=== PATIENT | male | born 1975 | race Caucasian/White ===

== ENCOUNTER 2020-12-03 06:31 | Outpatient (REF) | payer BC, SELFPAY ==
[2020-12-03 11:48] LABS: Alanine Aminotransferase 48 U/L (0-40); Alkaline Phosphatase 52 U/L (39-117); Anion Gap 11 (12-20); Aspartate Amino Transferase 28 U/L (5-37); Bilirubin Total 0.6 mg/dL (0.0-1.0); Blood Urea Nitrogen 14 mg/dL (9-16); Calcium 8.8 mg/dL (8.4-10.2); Carbon Dioxide 29 mmol/L (22-29); Chloride 104 mmol/L (96-108); Cholesterol 125 mg/dL; Estimated Glomerular Filt Rate > 60; Glucose Fasting 120 mg/dL (60-99); HDL Cholesterol 35 mg/dL; LDL Cholesterol Calculated 71 mg/dl; Potassium 3.2 mmol/L (3.3-5.1); Sodium 141 mmol/L (135-145); Total Protein 6.7 g/dL (6.5-8.0); Triglycerides 96 mg/dL
[2020-12-03 12:12] LABS: TSH reflex Free T4 1.58 uIU/mL (0.32-4.0)
== END 2020-12-03 06:32 | disposition home or self-care (01) ==
LOC: HO.HMGCLDS 06:31
PROVIDERS: PCP Nurse Practitioner Family; Visit Provider Nurse Practitioner Family
DX: Z00.00 Encounter for general adult medical examination without abnormal findings (principal)
CPT/HCPCS: 36415; 80053; 80061; 84443

== ENCOUNTER 2020-12-05 06:22 | Outpatient (REF) | payer BC, SELFPAY ==
[2020-12-05 11:40] LABS: Alanine Aminotransferase 46 U/L (0-40); Albumin Level 3.7 g/dL (3.5-5.0); Alkaline Phosphatase 50 U/L (39-117); Anion Gap 12 (12-20); Aspartate Amino Transferase 27 U/L (5-37); Bilirubin Total 0.3 mg/dL (0.0-1.0); Blood Urea Nitrogen 13 mg/dL (9-16); Calcium 8.2 mg/dL (8.4-10.2); Carbon Dioxide 27 mmol/L (22-29); Chloride 102 mmol/L (96-108); Estimated Glomerular Filt Rate > 60; Glucose Random 116 mg/dL (60-115); Potassium 3.3 mmol/L (3.3-5.1); Sodium 138 mmol/L (135-145); Total Protein 6.5 g/dL (6.5-8.0)
== END 2020-12-05 06:23 | disposition home or self-care (01) ==
LOC: HO.HMGCLDS 06:22
PROVIDERS: PCP Nurse Practitioner Family; Visit Provider Nurse Practitioner Family
DX: E87.6 Hypokalemia (principal)
CPT/HCPCS: 36415; 80053

== ENCOUNTER 2020-12-10 09:09 | Outpatient (REF) | payer BC, SELFPAY ==
--- NOTE | ~2020-12-10 | CT_ITS ---
EXAMINATION: CT ABDOMEN AND PELVIS WITH CONTRAST CLINICAL INFORMATION: Umbilical hernia COMPARISON: Previous abdominal ultrasound January 2020 TECHNIQUE: Multidetector volumetric images were obtained from the superior aspect of the liver through the pubic symphysis following administration 85 mL of Omnipaque 350 intravenous contrast. Sagittal and coronal reformatted images were obtained on the technologist's workstation. Oral contrast: Yes This CT examination was performed using dose optimization techniques as appropriate, variously including the following: *Automated exposure control *Adjustment of mA and/or kV according to patient size (this includes techniques or standardized protocols for targeted exams where dose is matched to indication/reason for exam; i.e. extremities or head) *Use of iterative reconstruction technique DLP: 809 mGy-cm FINDINGS: LUNG BASES: The visualized lung bases are unremarkable. LIVER, GALLBLADDER, AND BILIARY TREE: The liver is low in attenuation suggestive of fatty infiltration. The liver is enlarged, right lobe measuring 20 cm in length. No focal liver lesion is seen. The gallbladder is normal-appearing. There is no biliary duct dilatation. PANCREAS: Unremarkable. SPLEEN: Unremarkable. ADRENAL GLANDS: Unremarkable. KIDNEYS AND URETERS: The kidneys are normal in size, shape, and attenuation. No hydronephrosis, hydroureter, or calculi seen. No perinephric stranding. BLADDER: Unremarkable. GASTROINTESTINAL TRACT: There is diverticulosis of the colon. The small and large bowel are otherwise unremarkable. The appendix is unremarkable. ABDOMINAL WALL: There is an umbilical hernia containing fat that measures 7.5 x 5.3 x 5.5 cm in AP, transverse and longitudinal dimension. LYMPH NODES: Normal. VASCULAR: Unremarkable. PELVIC VISCERA: Unremarkable. OSSEOUS STRUCTURES: There are degenerative changes of the spine. There is curvature of the proximal lumbar and lower thoracic spine to the right. CT/CT abdomen pelvis w con IMPRESSION: Large umbilical hernia containing fat. Enlarged fatty liver. Diverticulosis of the colon.
[2020-12-10] MEDS: iohexoL 350 MG/ML 100 ML INFUS..BTL 85 ML IV (12:52)
[2020-12-10] MEDS: Barium Sulfate Oral (Berry) 450 ML ORAL.SUSP 900 ML PO (12:52)
== END 2020-12-10 09:10 | disposition home or self-care (01) ==
LOC: HO.CT 09:09
PROVIDERS: Visit Provider Nurse Practitioner Family
DX: K42.9 Umbilical hernia without obstruction or gangrene (principal)
CPT/HCPCS: 74177; Q9967

== ENCOUNTER → 2020-12-24 13:57 | Outpatient (BNVA) | payer BC, SELFPAY | PROVIDERS: PCP Nurse Practitioner Family; Visit Provider Surgery ==

== ENCOUNTER 2021-01-01 07:50 | Day surgery (SDC) | payer BC, SELFPAY ==
[2020-12-31 09:36] VITALS: BMI 40.9
[2021-01-01] VITALS (8 sets, daily range): BP systolic 118–155; BP diastolic 56–89; PULSE 80–94; RESP 16–18; TEMP 36.9–37.2; O2SAT 92–98
--- NOTE | 2021-01-01 07:57 | P.CONAN_ITS ---
[facility] Active Problems Active Problems: All Active Problems (Updated 12/24/20 @ 14:22 by Abdulaziz tyson MD) Essential (primary) hypertension (Acute) Hypokalemia (Acute) Umbilical hernia (Acute) Physical exam (Acute) Past Medical History Medical History Essential (primary) hypertension Family History Family History Father Stroke Diabetes mellitus Mother Stroke Diabetes mellitus Brother HTN (hypertension) Diabetes mellitus Maternal Grandmother No problems noted. Maternal Grandfather Myocardial infarction Paternal Grandfather Cirrhosis Paternal Grandmother Breast cancer Son No problems noted. Daughter No problems noted. Surgical History Surgical History History of knee surgery Social History Social History Alcohol intake: current Alcohol intake frequency: holidays/special occasions only Smoking Status: Current every day smoker Cigarettes Per Day: 20 Use of substances other than those prescribed or required for medical reasons: No Advance Directives: No Advance Directives Information Provided: Yes Meds Allergies Allergy/AdvReac Type Severity Reaction Status Date / Time No Known Allergies Allergy Verified 01/01/21 07:58 Active Medications: Current Medications Generic Name Dose Route Start Last Admin Trade Name Freq PRN Reason Stop Dose Admin Lactated Ringer's 1,000 mls @ 100 mls/hr 01/01/21 08:00 Lr IVCONT .Q10H SHEREE Cefazolin Sodium/Dextrose 2 gm in 50 mls @ 100 mls/hr 01/01/21 07:53 Ancef IV 01/01/21 08:22 PREOP ONE Home Medications Medication Instructions Recorded Confirmed Last Taken Type aspirin 81 mg tablet,delayed 81 mg PO DAILY 12/24/20 12/24/20 Unknown History release Exam Exam Date and Time: January 01, 2021 0757 Height,Weight and Vital Signs: Height 6 ft 3 in Weight 148.6 kg Airway Mallampati Class: II TM Dist: >3cm Neck ROM: Full Assessment and Plan Assessment Anesthesia Assessment: Anesthesia Plan Discussed Final Anesthetic Review NPO: Yes ASA Class: III Final Preanesthetic Review: No Changes in Pt Med Stat, Meds/Allgs Chart Reviewed, Consent Obtained/Reviewed and Anes Risks/Benef Reviewed Patient Risk: Intermediate Procedure Risk: Low Assessment/Block/Sedation in SS: Assess/Block/Sedation-SS Anesthetic Plan Anesthetic Plan: GA Disposition: Standard PACU
--- NOTE | 2021-01-01 08:29 | MHC.SHP ---
Pre-Procedural Eval Section A The patient is an INPATIENT: No Changes since office visit: Yes Patient answered all questions; No Cold of Flu in the past 2 weeks, No New Medical Problems and No Changes in Medication The History & Physical has been completed within 30 days and I have reviewed it.: Yes Section B Chief Complaint: Umbilical hernia Allergies: Allergies Allergy/AdvReac Type Severity Reaction Status Date / Time No Known Allergies Allergy Verified 01/01/21 07:58 Plan Diagnosis/Plan: Unchanged I have reviewed the history and physical and performed a pertinent physical examination on my patient. No changes have occurred unless specified.
[2021-01-01] MEDS: Lactated Ringers 1,000 ML 100 ML IVCONT (08:39)
--- NOTE | 2021-01-01 10:13 | P.OP_ITS ---
Operative Note Operative Note Date of Service: 01/01/21 Narrative: Preoperative diagnosis: Umbilical hernia Postoperative diagnosis: Same Procedure: Repair of umbilical hernia with mesh Surgeon: Abdulaziz Manzo MD Resource Management Specialist: Elle Gordon PA-C Anesthesia: General LMA Indications for procedure: 45-year-old male patient presenting with a tender lump located just above the umbilicus which increases in size with lifting and straining but does not reduce completely. Findings consistent with an umbilical hernia. Operative findings: Patient is found to have a hernia located in midline fascia just above the umbilicus with a defect measuring approximately 4 cm containing falciform ligament and peritoneum. No bowel was noted within the hernia sac. Specimen: None Estimated blood loss: 10 Complications: None Procedure details: Patient was brought to the OR and placed in a supine position. After administering general anesthesia the patient's abdomen was prepped with ChloraPrep and draped in a sterile fashion. A surgical time-out was called and consent confirmed. Patient received preoperative antibiotics and Venodyne boots were in place. Local anesthesia consisting of 0.5% Sensorcaine was then infiltrated in the midline starting from the umbilicus extending up approximately 10 cm. The incision was carried out through subcutaneous tissue down to the hernia sac. The hernia sac was then dissected down to the fascial defect which measured approximately 4 cm in diameter. The sac was then entered and the contents reduced into the abdominal cavity. Peritoneal was then closed in the preperitoneal space created below the fascia. An 8 cm round Ventralex mesh was then obtained. It was then secured to the fascia in a parachute type fashion using 4 quadrant sutures of 1 Tycron. The mesh was then placed into the preperitoneal space and the 4 quadrant sutures tied. The fascia was then closed over the mesh using 1 Tycron sutures in a [id number] fashion using the mesh part of the closure. The wounds were then irrigated with saline and suctioned dry. Additional local was infiltrated into the muscle fascia. Hemostasis was assured at this time. Deep subcutaneous tissue was then reapproximated using interrupted 3 0 Polysorb sutures. Superficial subcutaneous tissue and dermis reapproximated using interrupted 3-0 Polysorb sutures and skin was closed using a running subcuticular 4-0 Polysorb suture. Steri-Strips 2 x 2 gauze and Tegaderm were then applied. The patient tolerated the procedure well. Sponge, instrument, and needle counts reported as correct. Patient was transferred to PACU in stable condition.
--- NOTE | 2021-01-01 10:18 | PM.OP ---
Brief Operative Note Date of Service: 01/01/21 Pre-op diagnosis: Umbilical hernia Post-op diagnosis: same Procedure: Repair of umbilical hernia with mesh Implants: 8 cm round Ventralex mesh Surgeon: Abdulaziz Manzo MD Anesthesia: GLMA [employer] Officer: Elle Gordon Estimated blood loss (mL): 10 Pathology: none sent Condition: stable Disposition: PACU
[2021-01-01] MEDS: fentaNYL citrate/PF 100 MCG/2 ML VIAL 50 MCG IVPUSH ×2 (10:30→10:35)
[2021-01-01] MEDS: Acetaminophen 325 MG TABLET 650 MG PO (10:41)
[2021-01-01] MEDS: oxyCODONE HCl Immed Release 5 MG TABLET PO (10:42)
== END 2021-01-01 11:52 | disposition home or self-care (01) ==
PROVIDERS: PCP Nurse Practitioner Family; Visit Provider Surgery
PROC: (CPT 49585; principal; 2021-01-01 09:10)
DX: K42.9 Umbilical hernia without obstruction or gangrene (principal); I10 Essential (primary) hypertension; Z79.82 Long term (current) use of aspirin; Z79.899 Other long term (current) drug therapy
CPT/HCPCS: 49585; C1781; J0690; J1100; J1885; J2250; J2370; J2405; J3010

== ENCOUNTER → 2021-01-13 13:58 | Outpatient (BNVA) | payer BC, SELFPAY | PROVIDERS: PCP Nurse Practitioner Family; Visit Provider Surgery ==

== ENCOUNTER → 2021-03-03 14:14 | Outpatient (BNVA) | payer BC, SELFPAY | PROVIDERS: PCP Nurse Practitioner Family; Referring Provider Nurse Practitioner Family; Visit Provider Surgery ==

== ENCOUNTER 2022-12-01 09:22 | Outpatient (REF) | payer BC, SELFPAY ==
[2022-12-01 11:35] LABS: Hemoglobin 17.5 g/dl (14.0-18.0); Mean Corpuscular HGB Conc 33.7 g/dl (31.0-36.0); Mean Corpuscular Volume 89.2 fL (80.0-98.0); Mean Platelet Volume 12.7 fL (9.4-12.4); Platelet Count 176 X10*3/uL (160-400); Red Blood Count 5.83 X10*6/uL (4.60-5.80); Red Cell Distribution Width 14.2 % (11.0-16.0); White Blood Count 8.9 X10*3/uL (4.8-10.8)
[2022-12-01 12:23] LABS: TSH reflex Free T4 3.11 uIU/mL (0.32-4.0)
[2022-12-01 12:48] LABS: Erythrocyte Sedimentation Rate 2 MM/HR (0-15)
[2022-12-04 11:18] LABS: CRP High Sensitivity 4.5 mg/L
== END 2022-12-01 09:23 | disposition home or self-care (01) ==
LOC: HO.HMGCLDS 09:22
PROVIDERS: PCP Nurse Practitioner Family; Visit Provider Nurse Practitioner Family
DX: E01.0 Iodine-deficiency related diffuse (endemic) goiter (principal); R59.0 Localized enlarged lymph nodes
CPT/HCPCS: 36415; 84443; 85027; 85652; 86141

== ENCOUNTER 2022-12-09 09:41 | Outpatient (REF) | payer BC, SELFPAY ==
--- NOTE | ~2022-12-09 | US_ITS ---
EXAMINATION: US THYROID CLINICAL INFORMATION: Thyromegaly. COMPARISON: None TECHNIQUE: Linear transducer grayscale and color Doppler examination with attention to the region of the thyroid. FINDINGS: SIZE: Measurements of the thyroid lobes and nodules are given in sagittal, anteroposterior and transverse dimensions respectively. Right Thyroid Lobe: 3.7 x 2.3 x 1.4 cm, volume 2.7 mL. Parenchyma: The gland echotexture is homogeneous. Thyroid vascularity is normal. Left Thyroid Lobe: 4.0 x 1.6 x 1.6 cm, volume 5.4 mL. Parenchyma: The gland echotexture is homogeneous. Thyroid vascularity is normal. Isthmus: 0.4 cm in maximum AP dimension. Estimated total number of nodules greater than or equal to 1 cm: 0. Web Development Director nodules are described as follows: 1. Location: Lower pole left lobe. Size: 0.9 x 0.8 x 0.8 cm, volume 0.3 mL. Nodule characteristics: Composition: Solid (2). Echogenicity: Hyperechoic (1). Shape: Not taller than wide (0). Margins: Smooth (0). Echogenic Foci: None (0). ACR TI-RADS total points: 3 ACR TI-RADS category: 3 NODES: See below. US/US thyroid IMPRESSION: A small left thyroid lobe nodule is seen, as detailed. ACR TI-RADS RECOMMENDATION REFERENCE: Ultrasound-guided fine-needle aspiration, followup ultrasound, no further follow up. * TR1 (0 point) and TR2 (2 points): No FNA or follow up. * TR3 (3 points): FNA if more than or equal to 2.5 cm in maximum dimension, followup ultrasound in 1, 3 and 5 years if 1.5 to 2.4 cm in maximum dimension. * TR4 (4-6 points): FNA if more than or equal to 1.5 cm in maximum dimension, followup ultrasound in 1, 2, 3 and 5 years if 1 to 1.4 cm in maximum dimension. * TR5 (more than or equal to 7 points): FNA if more than or equal to 1 cm in maximum dimension, followup ultrasound every year for 5 years if 0.5 to 0.9 cm in maximum dimension. * TR3, TR4 or TR5 nodules that are below the size threshold for followup receive no follow up. EXAMINATION: US SOFT TISSUE NECK CLINICAL INFORMATION: Localized enlarged lymph nodes. COMPARISON: None TECHNIQUE: Ultrasound of the neck soft tissues is performed with high frequency howell-scale imaging and color Doppler. FINDINGS: RIGHT NECK SOFT TISSUES: Right neck soft tissues and nodes are as follows: Level 1B: 2.2 x 1.7 x 2.8 cm. There is focal cortical thickening, a slit-like hilum and a round configuration. Level 1B: 2.2 x 1.5 x 1.0 cm. There is focal cortical thickening, a slit-like hilum and a round configuration. Level 1B: 1.3 x 0.7 x 1.6 cm. There is focal cortical thickening, a slit-like hilum and a round configuration. Level 5A: 2.7 x 1.6 x 2.4 cm. There is focal cortical thickening and a cystic configuration. Level 6: 1.0 x 1.0 x 0.8 cm. There is focal cortical thickening, a slit-like hilum and a round configuration. LEFT NECK SOFT TISSUES: Left neck soft tissues and nodes are as follows: Level 1B: 1.1 x 0.7 x 1.0 cm. There is focal cortical thickening, a slit-like hilum and a cystic configuration. Level 1B: 1.2 x 0.9 x 0.9 cm. There is focal cortical thickening, a slit-like hilum and a cystic configuration. Level 3: 2.3 x 0.7 x 1.3 cm. There is focal cortical thickening, a slit-like hilum and a cystic configuration. Level 4: 1.6 x 1.0 x 1.2 cm. There is focal cortical thickening, a slit-like hilum and a cystic configuration. IMPRESSION: There are multiple enlarged bilateral cervical lymph nodes with abnormal features. These may be reactive; the exact etiologies are indeterminate. Recommend management on a clinical basis. If of continued clinical concern, consider short-term follow-up ultrasound imaging in 3-6 months to ensure stability/regression.
== END 2022-12-09 09:42 | disposition home or self-care (01) ==
LOC: HO.HMGCX 09:41
PROVIDERS: PCP Nurse Practitioner Family; Visit Provider Nurse Practitioner Family
DX: E01.0 Iodine-deficiency related diffuse (endemic) goiter (principal); R59.0 Localized enlarged lymph nodes
CPT/HCPCS: 76536

== ENCOUNTER 2022-12-27 06:12 | Outpatient (REF) | payer BC, SELFPAY ==
[2022-12-27 11:58] LABS: MANUAL DIFF FLAG NO
[2022-12-27 12:03] LABS: Appearance Urine Clear; Color Urine Yellow; Glucose Urine UA Negative (Negative); Leukocyte Esterase Urine Negative (Negative); Nitrite Urine Negative (Negative); PH 5.5 (5.0-9.0); Urine Blood Negative (Negative); Urine Ketones Negative (Negative); Urine Protein Negative (Neg-Trace)
[2022-12-27 12:13] LABS: Basophils Absolute Auto 0.1 X10*3/uL (0.0-0.2); Basophils Percent Auto 0.5 % (0-2); Eosinophils Absolute Auto 0.2 X10*3/uL (0.0-0.4); Eosinophils Percent Auto 1.8 % (0-4); Hemoglobin 17.7 g/dl (14.0-18.0); Imm Gran Abs Auto 0.04 X10*3/uL (0.00-0.03); Imm Gran Pct Auto 0.4 % (0.0-0.4); Lymphocytes Absolute Auto 1.9 X10*3/uL (1.2-4.9); Lymphocytes Percent Auto 20.7 % (20-40); Mean Corpuscular HGB Conc 33.4 g/dl (31.0-36.0); Mean Corpuscular Hemoglobin 30.3 pg (27.0-33.0); Mean Corpuscular Volume 90.8 fL (80.0-98.0); Mean Platelet Volume 12.8 fL (9.4-12.4); Monocytes Absolute Auto 0.9 X10*3/uL (0.1-1.2); Monocytes Percent Auto 9.8 % (2-11); Neutrophils Absolute Auto 6.3 x10*3/uL (2.0-8.3); Neutrophils Percent Auto 66.8 % (45-73); Platelet Count 164 X10*3/uL (160-400); Red Blood Count 5.84 X10*6/uL (4.60-5.80); Red Cell Distribution Width 14.6 % (11.0-16.0); White Blood Count 9.4 X10*3/uL (4.8-10.8)
[2022-12-27 12:47] LABS: Alanine Aminotransferase 42 U/L (0-40); Albumin Level 4.2 g/dL (3.5-5.0); Alkaline Phosphatase 56 U/L (39-117); Anion Gap 11 (12-20); Aspartate Amino Transferase 23 U/L (5-37); Bilirubin Total 0.6 mg/dL (0.0-1.0); Blood Urea Nitrogen 14 mg/dL (9-16); Calcium 9.1 mg/dL (8.4-10.2); Carbon Dioxide 27 mmol/L (22-29); Chloride 106 mmol/L (96-108); Cholesterol 174 mg/dL; Estimated Glomerular Filt Rate > 60; Glucose Fasting 111 mg/dL (60-99); HDL Cholesterol 41 mg/dL; LDL Cholesterol Calculated 114 mg/dl; Potassium 4.5 mmol/L (3.3-5.1); Sodium 139 mmol/L (135-145); TSH reflex Free T4 2.47 uIU/mL (0.32-4.0); Total Protein 7.2 g/dL (6.5-8.0); Triglycerides 97 mg/dL
== END 2022-12-27 06:13 | disposition home or self-care (01) ==
LOC: HO.HMGCLDS 06:12
PROVIDERS: PCP Nurse Practitioner Family; Visit Provider Nurse Practitioner Family
DX: Z00.00 Encounter for general adult medical examination without abnormal findings (principal); Z79.899 Other long term (current) drug therapy
CPT/HCPCS: 36415; 80053; 80061; 81003; 84443; 85025

== ENCOUNTER 2023-01-07 07:26 | Outpatient (REF) | payer BC, SELFPAY ==
--- NOTE | ~2023-01-07 | CT_ITS ---
EXAMINATION: CT SOFT TISSUE NECK WITH CONTRAST CLINICAL INFORMATION: Localized enlarged lymph nodes. COMPARISON: None available. TECHNIQUE: Following intravenous administration of 60 mL of Omnipaque 350 contrast, helical imaging was performed in the axial plane with generation of coronal and sagittal reformatted images. This CT examination was performed using dose optimization techniques as appropriate, variously including the following: *Automated exposure control. *Adjustment of mA and/or kV according to patient size (this includes techniques or standardized protocols for targeted exams where dose is matched to indication/reason for exam; i.e. extremities or head). *Use of iterative reconstruction technique. DLP: 427 mGy-cm FINDINGS: There is a homogeneous 2.6 x 2 cm round soft tissue mass lateral to the right submandibular gland which is indeterminate but is suspected to represent an enlarged lymph node. No inflammatory changes are seen around the soft tissue nodular lesion. Adjacent to the lateral aspect of the mylohyoid muscle posteriorly and superior to the right submandibular gland, there is a large 1.9 cm right-sided level IB lymph node as well. A left-sided level III lymph node measures 1.5 cm. There are two left-sided supraclavicular lymph nodes which are mildly enlarged measuring 1.7 cm in long axis dimension in the axial plane. A right-sided supraclavicular lymph node is mildly enlarged and measures 1.2 cm in diameter. A right-sided level IIA jugulodigastric lymph node has a normal fatty hilum but is also mildly enlarged, measuring 1.9 cm in long axis dimension. The nasopharyngeal soft tissues are mildly prominent without evidence of a discrete lesion. The palatine tonsils are slightly asymmetric with a more convex morphology along the medial margin of the left oropharyngeal wall, otherwise no discrete lesion is visible. The oral cavity is unremarkable. The laryngeal structures appear normal. The parotid and submandibular glands are homogeneous. The thyroid gland appears normal. The airway is normally maintained. The imaged mediastinum is normal. There is an incidental 1.7 cm cystic lesion with a thin peripheral capsule lateral to the left parotid gland and along the anteroinferior margin of the left auricle. There are scattered dental caries and periodontal disease affecting the mandibular molars. Small retention cyst visible in the left maxillary antrum. Additional small retention cyst in the left sphenoid sinus. The remaining paranasal sinuses are fairly well aerated. The mastoid air cells are clear. There is a moderate rightward curvature of the spine at the cervicothoracic junction and a leftward curvature of the thoracic spine. No acute osseous abnormality is otherwise seen. The craniovertebral junction appears normal. Mild paraseptal emphysematous changes noted in the lungs. There is an incidental 0.3 cm nodule in the left upper lobe. A 0.6 cm nodule is also visible in the superior segment of the left lower lobe near the fissure. Further assessment of the lungs is somewhat limited due to respiratory motion artifacts. Mild atherosclerotic wall calcifications at the carotid bifurcations. The orbits are normal. The imaged portions of the brain demonstrate no acute abnormality. 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 CT/CT soft tissue neck w IV con IMPRESSION: 1. Approximate 2.6 cm suspected timoteo mass in the right submandibular triangle. Additional scattered mildly enlarged cervical and supraclavicular lymph nodes as described of indeterminate etiology. No primary lesion identified. Findings may be due to an underlying inflammatory or autoimmune disease process, however, malignancy cannot be ruled out. The dominant mass in the right submandibular triangle would be amenable to ultrasound-guided fine-needle aspiration. 2. Indeterminate 1.7 cm cystic lesion lateral to the left parotid gland at the anteroinferior margin of the left auricle. This may represent a sebaceous cyst or an epidermoid inclusion cyst. 3. Scattered dental caries and periodontal disease in the dentition. 4. Mild paraseptal emphysematous changes with a couple of scattered lung nodules, the largest measuring 0.6 cm in size. According to the 2017 Fleischner Society criteria for incidentally found pulmonary nodules of this size and appearance, 0.6-0.8 cm (solid nodule): in a low risk patient (minimal or no smoking or other known risk factors for malignancy), initial follow-up CT at 6-12 months and consider optional CT at 18-24 months, while in a high risk patient (history of smoking or other known risk factors), initial follow-up CT at 6-[address] at 18-24 months.
[2023-01-07] MEDS: iohexoL 350 MG/ML 100 ML INFUS..BTL IV (08:09)
== END 2023-01-07 07:27 | disposition home or self-care (01) ==
LOC: HO.CT 07:26
PROVIDERS: PCP Nurse Practitioner Family; Visit Provider Nurse Practitioner Family
DX: R59.0 Localized enlarged lymph nodes (principal); R93.89 Abnormal findings on diagnostic imaging of other specified body structures; F17.200 Nicotine dependence, unspecified, uncomplicated
CPT/HCPCS: 70491; Q9967

== ENCOUNTER 2023-04-25 13:49 | Outpatient (REF) | payer BC, SELFPAY ==
--- NOTE | ~2023-04-25 | US_ITS ---
EXAMINATION: US THYROID CLINICAL INFORMATION: Nontoxic single thyroid nodule. COMPARISON: CT soft tissue neck with contrast 01/07/2023. Ultrasound thyroid 12/09/2022. TECHNIQUE: Linear transducer grayscale and color Doppler examination with attention to the region of the thyroid. FINDINGS: SIZE: Measurements of the thyroid lobes and nodules are given in sagittal, anteroposterior and transverse dimensions respectively. Right Thyroid Lobe: 4.1 x 2.4 x 1.9 cm, volume 9.8 mL. Previously 3.7 x 2.3 x 1.4 cm, volume 2.7 mL. Parenchyma: The gland echotexture is homogeneous. Thyroid vascularity is normal. Left Thyroid Lobe: 4.2 x 1.6 x 1.9 cm, volume 6.7 mL. Previously 4.0 x 1.6 x 1.6 cm, volume 5.4 mL. Parenchyma: The gland echotexture is homogeneous. Thyroid vascularity is normal. Isthmus: 0.3 cm in maximum AP dimension. Previously 0.4 cm. Estimated total number of nodules greater than or equal to 1 cm: 1. Grief Counsellor nodules are described as follows: 1. Location: Left inferior. Size: 1.0 x 1.0 x 0.8 cm, volume 0.45 mL. Previously: 0.9 x 0.8 x 0.8 cm, volume 0.30 mL. Nodule characteristics: Composition: Solid (2). Echogenicity: Hyperechoic (1). Shape: Taller than wide (3). Margins: Smooth (0). Echogenic Foci: None (0). ACR TI-RADS total points: 6 Previous: 3 ACR TI-RADS category: 4 Previous: 3 Significant change in size (>/= 20% in 2 dimensions and minimal increase of 2 mm or 50% or greater increase in volume): Yes Change in features: Yes Change in ACR TI-RADS risk category: Yes NODES: At left cervical level II, a 2.5 x 0.6 x 1.5 cm for lymph node is seen. This shows poor corticomedullary differentiation. At left cervical level IV, a 1.8 x 1.0 x 1.0 cm reniform lymph node is seen. This shows good corticomedullary differentiation At right cervical level IB, a 1.2 x 0.9 x 1.6 cm reniform lymph node is seen. This shows good corticomedullary differentiation. US/US thyroid IMPRESSION: 1. A left thyroid lobe nodule seen, as detailed. Recommend continued thyroid ultrasound surveillance. 2. There is a mild asymmetric goiter, right lobe greater than left. 3. There are nonspecific mildly enlarged bilateral cervical lymph nodes. Recommend management on a clinical basis. If of continued clinical concern, consider short-term follow-up ultrasound imaging in 3-6 months to ensure stability/regression. ACR TI-RADS RECOMMENDATION REFERENCE: Ultrasound-guided fine-needle aspiration, followup ultrasound, no further follow up. * TR1 (0 point) and TR2 (2 points): No FNA or follow up. * TR3 (3 points): FNA if more than or equal to 2.5 cm in maximum dimension, followup ultrasound in 1, 3 and 5 years if 1.5 to 2.4 cm in maximum dimension. * TR4 (4-6 points): FNA if more than or equal to 1.5 cm in maximum dimension, followup ultrasound in 1, 2, 3 and 5 years if 1 to 1.4 cm in maximum dimension. * TR5 (more than or equal to 7 points): FNA if more than or equal to 1 cm in maximum dimension, followup ultrasound every year for 5 years if 0.5 to 0.9 cm in maximum dimension. * TR3, TR4 or TR5 nodules that are below the size threshold for followup receive no follow up.
== END 2023-04-25 13:50 | disposition home or self-care (01) ==
LOC: HO.HMGCX 13:49
PROVIDERS: PCP Nurse Practitioner Family; Visit Provider Nurse Practitioner Family
DX: E04.1 Nontoxic single thyroid nodule (principal)
CPT/HCPCS: 76536

== ENCOUNTER 2023-08-11 10:11 | Outpatient (REF) | payer BC, SELFPAY ==
--- NOTE | ~2023-08-11 | CT_ITS ---
EXAMINATION: CT CHEST WITHOUT CONTRAST CLINICAL INFORMATION: Solitary pulmonary nodule. COMPARISON: CT soft tissues of the neck 01/07/2023. TECHNIQUE: Multidetector volumetric CT imaging of the chest was done. Axial MIP volume rendering provided. Sagittal and coronal reformatted images were obtained. This CT examination was performed using dose optimization techniques as appropriate, variously including the following: *Automated exposure control *Adjustment of mA and/or kV according to patient size (this includes techniques or standardized protocols for targeted exams where dose is matched to indication/reason for exam; i.e. extremities or head) *Use of iterative reconstruction technique DLP: 318 mGy-cm FINDINGS: LUNGS: Frey-hq-yxljxhij diffuse bronchial wall thickening. No focal consolidation or significant ground-glass disease. Central airways are patent. Paraseptal emphysematous changes. Multiple solid pulmonary nodules bilaterally, largest measuring 6 mm in the right upper lobe (5:230), not definitely identified on 01/07/2023 and possibly new. Some examples of additional smaller solid nodules include a 2 mm nodule in the right apex (5:125) that is unchanged compared to 01/07/2023, a 2 mm right middle lobe nodule (5:333) not included in the [id number] of the prior examination, and a 2 mm nodule in the left lower lobe (5:289) not included in the [id number] of the prior examination. A few solid triangularly-shaped perifissural lymph nodes are noted, for example measuring 0.5 cm along the left major fissure (5:225). MEDIASTINUM: Normal heart size. No pericardial effusion. Normal appearance of the thyroid gland. No mediastinal lymphadenopathy. Evaluation of the hilar structures is limited in the absence of IV contrast. Normal caliber thoracic aorta. CORONARY ARTERY CALCIFICATION: Coronary artery calcifications are not visualized. PLEURA: No pleural effusion or pneumothorax. AXILLA: Symmetric gynecomastia. No axillary lymphadenopathy. UPPER ABDOMEN: Decreased attenuation of liver parenchyma suggesting hepatic steatosis. OSSEOUS STRUCTURES: No acute or aggressive-appearing osseous abnormalities. CT/CT chest wo IV con IMPRESSION: Multiple solid pulmonary nodules, largest measuring 6 mm in the right upper lobe. According to the UPDATED 2017 Fleischner Society recommendations, the advised followup imaging for multiple solid nodules measuring up to 6-[address] at 3 to 6 months. In high-risk patients, subsequent CT followup at 18 to 24 months is recommended. In low-risk patients, subsequent CT followup at 18 to 24 months is optional. [id number] bronchial wall thickening which could be seen in the setting of small airways disease. Background of paraseptal emphysema. Hepatic steatosis. Fleischner guidelines were followed.
== END 2023-08-11 10:12 | disposition home or self-care (01) ==
LOC: HO.CT 10:11
PROVIDERS: PCP Nurse Practitioner Family; Visit Provider Nurse Practitioner Family
DX: R91.1 Solitary pulmonary nodule (principal)
CPT/HCPCS: 71250

== ENCOUNTER → 2023-09-07 15:05 | Outpatient (BNVA) | payer SELFPAY | PROVIDERS: PCP Nurse Practitioner Family; Visit Provider Physician Assistant Medical | DX: Z02.79 Encounter for issue of other medical certificate (principal) ==

== ENCOUNTER 2023-10-03 09:47 | Outpatient (AMB) | payer BC, SELFPAY ==
--- NOTE | 2023-10-03 10:00 | A.OFFPC_ITS ---
Vital Signs 10/03/23 10:01 Height 6 ft 4 in Weight 330 lb BMI 40.2 BP 136/94 H Blood Pressure Location Lt brachial Position Sitting Pulse 84 Pulse Source Pulse Oximeter Pulse Oximetry (%) 100 Oxygen Delivery Method Room Air Intake Visit Reasons: 6 MON FUP+DISCUSS COLOGUARD Intake Note: Pt is here today for his 6mo. f/u Allergies No Known Allergies Allergy (Verified 10/03/23 10:02) Medication List - Last Reconciled 10/03/23 by MAC Pineda losartan 100 mg PO DAILY metoprolol succinate ER 25 mg PO DAILY 90 days Tobacco use date assessed: 10/03/23 Dental Screening Dental Screen Date: 10/03/23 Did you have a dental visit in the last 12 months?: No Was dental information given to patient?: Patient has dentist HPI 6 MON FUP+DISCUSS COLOGUARD HPI Details HTN: Blood pressure is managed with losartan 100mg. BP is elevated today. Will add metoprolol 25mg (will have pt start with half a tab for 2 weeks). Will restart atorvastatin 10mg. Denies chest pain, shortness of breath, headache, dizziness, and blurred vision. Due for colon screen, will order cologuard. [facility] Medical History Essential (primary) hypertension Surgical History H/O umbilical hernia repair History of knee surgery Hx of varicose vein ligation Family History Father Stroke Diabetes mellitus Mother Stroke Diabetes mellitus Brother HTN (hypertension) Diabetes mellitus Maternal Grandmother No problems noted. Maternal Grandfather Myocardial infarction Paternal Grandfather Cirrhosis Paternal Grandmother Breast cancer Son No problems noted. Daughter No problems noted. 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 1. Little interest or pleasure in doing things: not at all 2. Feeling down, depressed, or hopeless: not at all 3. Trouble falling or staying asleep, or sleeping too much: not at all 4. Feeling tired or having little energy: not at all 5. Poor appetite or overeating: not at all 6. Feeling bad about yourself - or that you are a failure or have let yourself or your family down: not at all 7. Trouble concentrating on things, such as reading the newspaper or watching television: not at all 8. Moving or speaking so slowly that other people could have noticed. Or the opposite - being so fidgety or restless that you have been moving around a lot more than usual: not at all 9. Thoughts that you would be better off or of hurting yourself in some way: not at all Total score: 0 Source: Developed by Drs. Emory Patricia, Wanda Balbuena, Georges Sevilla and colleagues, with an educational ezekiel from [employer]. Thrive Questionnaire Date Thrive assessed: 10/03/23 I am a: Patient What is your living situation today?: I have a steady place to live Within the past 12 months, did the food you bought not last and you didn't have the money to get more?: Never true Within the past 12 months, did you worry whether your food would run out before you got money to buy more?: Never true Do you have trouble paying for medicines?: No Do you have trouble getting transportation to medical appointments?: No Do you have trouble paying your heating and electricity bill?: No Do you have trouble taking care of your child, family member or friend?: No Do you have trouble with day-to-day activities such as bathing, preparing meals, shopping, managing finances, etc.?: No Are you currently unemployed and looking for a job?: No Are you interested in more education?: No AUDIT C Alcohol Use Questionnaire (AUDIT-C) 1. How often do you have a drink containing alcohol?: Monthly or less 2. How many drinks containing alcohol do you have on a typical day when you are drinking?: 1 or 2 3. How often do you have six or more drinks on one occasion?: Never Total Score: 1 NISHA-7 AMB Questionnaire NISHA-7 Date NISHA - 7 assessed: 10/03/23 Feeling nervous, anxious, or on edge: 0 = Not at all Not being able to stop or control worryin = Not at all Worrying too much about different things: 0 = Not at all Trouble relaxin = Not at all Being so restless that it is hard to sit still: 0 = Not at all Becoming easily annoyed or irritable: 0 = Not at all Feeling afraid as if something awful might happen: 0 = Not at all Total NISHA-7 score (0-4 normal; 5-9 mild; 10-14 moderate; 15-21 severe): 0 Source: Developed by Drs. Emory aPtricia, Wanda Balbuena, Georges Sevilla and colleagues, with an educational ezekiel from [employer]. Review of Systems Const Reports as per HPI Physical exam (Primary Care) Vital Signs: Last Vital Signs Pulse 84 10/03/23 10:01 BP 136/94 H 10/03/23 10:01 Pulse Ox 100 10/03/23 10:01 Oxygen Delivery Method Room Air 10/03/23 10:01 BMI result Body Mass Index 40.2 Tobacco/Smoking Status: Tobacco use Status Tobacco use date assessed 10/03/23 10/03/23 10:03 Patient Tobacco Use Status Current everyday Tobacco 10/03/23 10:03 Tobacco use type Cigarette 10/03/23 10:03 e-Cigarette/Vaping Use Never Used 10/03/23 10:03 PHQ-9: PHQ-9 Score PHQ-9: Total score 0 10/03/23 10:22 Thrive Assessment: Date of Thrive Assessment Date Thrive assessed 10/03/23 10/03/23 10:06 Const General: cooperative Nutritional Appearance: obese Orientation/consciousness: patient oriented x3 Resp Effort & Inspection: normal respiratory effort Auscultation: clear to auscultation bilaterally Cardio Rate: regular rate Rhythm: regular rhythm Heart sounds: S1 normal heart sound present and S2 normal heart sound present Neuro General: patient oriented x3 Extrem Right lower extremity: no edema Left lower extremity: no edema Psych Appearance: grossly normal Mental Status: mental status grossly normal Speech and movement: Normal speech and movement present Affect: normal affect Attitude: cooperative Thought process: Normal thought process present Thought content: Normal thought content present Insight: Good insight present (Psych) Judgement: Good judgement present (Psych) Assessment and Plan Assessment & Plan (1) Essential (primary) hypertension: Code(s): I10 - Essential (primary) hypertension Plan: med added, pt will watch his BP at home, call me if sustaining above 140/90, labs ordered Plan The patient agreed to the use of a infertility medical assistant for this encounter. Scribed for MAC Reyes by Casie Mane infertility medical assistant, on 10/03/2023 at 10:15 EST. Orders: Referrals Cologuard Test Z12.11 - Encounter for screening for malignant neoplasm of colon, Z12.12 - Encounter for screening for malignant neoplasm of rectum Medications: New metoprolol succinate ER 25 mg PO DAILY 90 days 90 tabs 0RF atorvastatin 10 mg PO BEDTIME 90 tabs 0RF 90 days Coding Level of Care Code Est Pt Level 3 (94622) Diagnoses Essential (primary) hypertension I10
[2023-10-03 10:01] VITALS: BP 136/94; PULSE 84; O2SAT 100; BMI 40.2
== END 2023-10-03 10:29 | disposition home or self-care (01) ==
PROVIDERS: PCP Nurse Practitioner Family; Visit Provider Nurse Practitioner Family
DX: I10 Essential (primary) hypertension (principal)
CPT/HCPCS: 99213

== ENCOUNTER 2023-12-20 08:09 | Outpatient (REF) | payer BC, SELFPAY ==
--- NOTE | ~2023-12-20 | CT_ITS ---
EXAMINATION: CT CHEST WITHOUT CONTRAST CLINICAL INFORMATION: Solitary pulmonary nodule. COMPARISON: 08/11/2023 TECHNIQUE: Multidetector volumetric CT imaging of the chest was done. Axial MIP volume rendering provided. Sagittal and coronal reformatted images were obtained. This CT examination was performed using dose optimization techniques as appropriate, variously including the following: *Automated exposure control *Adjustment of mA and/or kV according to patient size (this includes techniques or standardized protocols for targeted exams where dose is matched to indication/reason for exam; i.e. extremities or head) *Use of iterative reconstruction technique DLP: 333 mGy-cm FINDINGS: LUNGS: Mild paraseptal and centrilobular emphysema. 3 mm nodule left upper lobe on image 116. 3 mm nodule left upper lobe on image 186. 5 mm nodule abutting the left major fissure on image 229. 5 mm nodule right upper lobe on image 241. No focal consolidation. Central airways are patent. Elevated left hemidiaphragm. MEDIASTINUM: No bulky axillary, mediastinal or hilar lymphadenopathy. Great vessels are of normal caliber. Heart size is normal. No pericardial effusion. CORONARY ARTERY CALCIFICATION: None visualized on this study. PLEURA: No pleural effusion. CHEST WALL: Gynecomastia. UPPER ABDOMEN: Hepatic steatosis. No adrenal mass. OSSEOUS STRUCTURES: No destructive bone lesions. CT/CT chest wo IV con IMPRESSION: Stable bilateral pulmonary nodules measuring up to 5 mm. Subsequent follow-up imaging should be performed in 18-24 months.
== END 2023-12-20 08:10 | disposition home or self-care (01) ==
LOC: HO.CT 08:09
PROVIDERS: PCP Nurse Practitioner Family; Visit Provider Nurse Practitioner Family
DX: R91.1 Solitary pulmonary nodule (principal); F17.200 Nicotine dependence, unspecified, uncomplicated
CPT/HCPCS: 71250

== ENCOUNTER 2024-04-16 13:33 | Outpatient (AMB) | payer BC, SELFPAY ==
--- NOTE | 2024-04-16 13:58 | MHC.PC.OV ---
Vital Signs 04/16/24 14:01 Height 6 ft 4 in Weight 328 lb BMI 39.9 Pulse 82 Pulse Source Pulse Oximeter Pulse Oximetry (%) 99 Oxygen Delivery Method Room Air Intake Visit Reasons: Annual PE Intake Note: Patient here for physical exam. Allergies No Known Allergies Allergy (Verified 04/16/24 14:02) Medication List - Last Reconciled 04/16/24 by MAC Pineda atorvastatin 10 mg PO BEDTIME 90 days losartan 100 mg PO DAILY metoprolol succinate ER 25 mg PO DAILY 90 days Tobacco use date assessed: 04/16/24 Dental Screening Dental Screen Date: 04/16/24 Did you have a dental visit in the last 12 months?: Yes Did you have a dental problem in the last 6 months where you did not have access to dental care?: No Was dental information given to patient?: Patient has dentist HPI Annual PE HPI Details Pt is here for a PE. Will order labs. Due for colon screen, will refer to GI. Pt reports frequent diarrhea. He reports that this is not associated with eating but is worse before and during work. He reports having approximately 6-7 loose bowel movements per day. Denies fever, chills, abdominal pain, and blood in stool. Will order stool studies. Will have him purchase fiber to help bulk stools. Pt will also discuss this with GI. HTN: Pt reports that his blood pressure has been in the 110s/80s at home. Pt has a family hx of bladder cancer (brother at age 51). Will order urine cytology, pt does smoke. He further reported his brother was exposed to multiple metals. Pt reports a cyst on his scalp. Will refer to general surgery. [facility] Medical History Essential (primary) hypertension Surgical History H/O umbilical hernia repair Hx of varicose vein ligation History of knee surgery Family History Father Stroke Diabetes mellitus Mother Stroke Diabetes mellitus Brother HTN (hypertension) Diabetes mellitus Maternal Grandmother No problems noted. Maternal Grandfather Myocardial infarction Paternal Grandfather Cirrhosis Paternal Grandmother Breast cancer Son No problems noted. Daughter No problems noted. 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 22441 - PHQ-9 Billing: Patient declined-do not bill Source: Developed by Drs. Emory Patricia, Wanda Balbuena, Georges Sevilla and colleagues, with an educational ezekiel from [employer]. Thrive Questionnaire Date Thrive assessed: 10/03/23 I am a: Patient What is your living situation today?: I have a steady place to live Within the past 12 months, did the food you bought not last and you didn't have the money to get more?: Never true Within the past 12 months, did you worry whether your food would run out before you got money to buy more?: Never true THRIVE Score: 0 AUDIT C Alcohol Use Questionnaire (AUDIT-C) 1. How often do you have a drink containing alcohol?: Monthly or less 2. How many drinks containing alcohol do you have on a typical day when you are drinking?: 3 or 4 3. How often do you have six or more drinks on one occasion?: Less than monthly Total Score: 3 NISHA-7 AMB Questionnaire NISHA-7 Date NISHA - 7 assessed: 10/03/23 Feeling nervous, anxious, or on edge: 0 = Not at all Not being able to stop or control worryin = Not at all Worrying too much about different things: 0 = Not at all Trouble relaxin = Not at all Being so restless that it is hard to sit still: 0 = Not at all Becoming easily annoyed or irritable: 0 = Not at all Feeling afraid as if something awful might happen: 0 = Not at all Total NISHA-7 score (0-4 normal; 5-9 mild; 10-14 moderate; 15-21 severe): 0 Source: Developed by Drs. Emory Patricia, Wanda Balbuena, Georges Sevilla and colleagues, with an educational ezekiel from [employer]. NISHA-7 Assessment Billing NISHA-7 Assessment Tool: NISHA-7 Assessment 09135 Review of Systems Const Denies chills and Denies fever(s) Eyes Denies blurry vision ENT Denies vertigo, Denies dizziness and Denies sore throat Card Denies chest pain at rest, Denies chest pain with activity, Denies diaphoresis, Denies dyspnea and Denies dyspnea on exertion Resp Denies cough, Denies dyspnea, Denies dyspnea on exertion and Denies wheezing GI Denies abdominal pain, Denies melena, Denies hematochezia, Denies constipation, Reports diarrhea and Reports loose stools Denies hematuria Musc Denies numbness and Denies tingling Skin/Breast Denies lesions Neuro Denies vertigo, Denies dizziness, Denies numbness and Denies tingling Psych Denies anxiety, Denies depression, Denies homicidal ideation, Denies suicidal ideation and Denies other (substance abuse) Aller/Immun Denies wheezing Physical exam (Primary Care) Vital Signs: Last Vital Signs Pulse 82 04/16/24 14:01 Pulse Ox 99 04/16/24 14:01 Oxygen Delivery Method Room Air 04/16/24 14:01 BMI result Body Mass Index 39.9 Tobacco/Smoking Status: Tobacco use Status Tobacco use date assessed 04/16/24 04/16/24 14:05 Patient Tobacco Use Status Current everyday Tobacco 04/16/24 14:00 Tobacco use type Cigarette 04/16/24 14:00 e-Cigarette/Vaping Use Never Used 04/16/24 14:00 Thrive Assessment: Date of Thrive Assessment Date Thrive assessed 10/03/23 04/16/24 14:00 Const General: cooperative Nutritional Appearance: obese Orientation/consciousness: patient oriented x3 HENMT Head: Yes normal to inspection, Yes normocephalic and Yes atraumatic Ears: TM's normal bilaterally Eyes General: appearance normal, both eyes and all related structures Alignment and Position: alignment normal and position normal Neck Neck: Yes normal visual inspection and Yes no lymphadenopathy Thyroid: Thyroid normal Resp Other: expiratory snore Effort & Inspection: normal respiratory effort Cardio Rate: regular rate Rhythm: regular rhythm Heart sounds: S1 normal heart sound present, S2 normal heart sound present and no murmurs GI Palpation (GI): Soft to palpation and nontender Auscultation: normal bowel sounds Male General Exam: Yes normal external exam Penis: normal penis Scrotum: scrotum normal, testes descended bilaterally and no inguinal hernias Testes: no testicular mass Skin Other: right occipital skull region with large cystic lesion Rashes: no rashes Neuro General: patient oriented x3, moves all extremities, no focal motor deficits and deep tendon reflexes 2+ bilaterally Romberg Test: Negative Psych Appearance: grossly normal Mental Status: mental status grossly normal Speech and movement: Normal speech and movement present Affect: normal affect Attitude: cooperative Thought process: Normal thought process present Thought content: Normal thought content present Insight: Good insight present (Psych) Judgement: Good judgement present (Psych) Assessment and Plan Assessment & Plan (1) Physical exam: Code(s): Z00.00 - Encounter for general adult medical examination without abnormal findings Plan: Labs ordered (2) Screening for colon cancer: Code(s): Z12.11 - Encounter for screening for malignant neoplasm of colon Plan: Referred to GI (3) Lung nodule: Comment: multiple nodules, more than 6mm Code(s): R91.1 - Solitary pulmonary nodule Plan: CT ordered (4) Diarrhea: Code(s): R19.7 - Diarrhea, unspecified Plan: Stool studies ordered, referring to gastro (again) for diarrhea and colon screen. Using imodium which helps minimally (5) Family history of bladder cancer: Code(s): Z80.52 - Family history of malignant neoplasm of bladder Plan: Urine cytology ordered (6) Essential (primary) hypertension: Code(s): I10 - Essential (primary) hypertension Plan: stable (7) Scalp cyst: Code(s): L72.9 - Follicular cyst of the skin and subcutaneous tissue, unspecified Plan: referring to Plan The patient agreed to the use of a medical office assistant for this encounter. Scribed for MAC Reyes by Casie Mane medical office assistant, on 04/16/2024 at 14:20 EST. Orders: Orders Comprehensive Lyman. Panel Fast Today Z00.00 - Encounter for general adult medical examination without abnormal findings TSH reflex Free T4 Today Z00.00 - Encounter for general adult medical examination without abnormal findings UA CC w/rflx Micro + Cult Today Z00.00 - Encounter for general adult medical examination without abnormal findings Lipid Panel Today Z00.00 - Encounter for general adult medical examination without abnormal findings CT chest wo IV con 8 Months R91.1 - Solitary pulmonary nodule GI Panel Today R19.7 - Diarrhea, unspecified Urine Cytology Today Z80.52 - Family history of malignant neoplasm of bladder Complete Blood Count Auto Diff Today Z00.00 - Encounter for general adult medical examination without abnormal findings CDiff Gene PCR Today R19.7 - Diarrhea, unspecified H pylori Ag Stool Today R19.7 - Diarrhea, unspecified Erythrocyte Sedimentation Rate Today R19.7 - Diarrhea, unspecified C Reactive Protein Today R19.7 - Diarrhea, unspecified Referrals Gastroenterology Referral Z12.11 - Encounter for screening for malignant neoplasm of colon General Surgery Referral L72.9 - Follicular cyst of the skin and subcutaneous tissue, unspecified Coding Level of Care Code Est Pt Level 3 (08684) Est Pt Prev Care 40-64y(42680) Diagnoses Physical exam Z00.00 Screening for colon cancer Z12.11 Lung nodule R91.1 Diarrhea R19.7 Family history of bladder cancer Z80.52 Essential (primary) hypertension I10 Scalp cyst L72.9 Additional Codes NISHA-7 Assessment Billing - NISHA-7 Assessment Tool: NISHA-7 Assessment 95259 ([id number])
[2024-04-16 14:01] VITALS: PULSE 82; O2SAT 99; BMI 39.9
== END 2024-04-16 14:43 | disposition home or self-care (01) ==
PROVIDERS: PCP Nurse Practitioner Family; Visit Provider Nurse Practitioner Family
DX: Z00.00 Encounter for general adult medical examination without abnormal findings (principal); R19.7 Diarrhea, unspecified; R91.1 Solitary pulmonary nodule; I10 Essential (primary) hypertension; Z12.11 Encounter for screening for malignant neoplasm of colon; Z80.52 Family history of malignant neoplasm of bladder; L72.9 Follicular cyst of the skin and subcutaneous tissue, unspecified
CPT/HCPCS: 99213; 99396

== ENCOUNTER 2024-05-01 12:46 | Outpatient (AMB) | payer BC, SELFPAY ==
--- NOTE | 2024-05-01 12:51 | MHC.OFFVIS ---
Vital Signs 05/01/24 12:54 Height 6 ft 4 in Weight 327 lb 15.989 oz BMI 39.9 Intake Visit Reasons: Lipoma Intake Note: Patient is seen in office for evaluation and treatment of a cyst of the scalp. Pt c/o: reports discomfort, back of head right side. ref. [place] Range Operator Required: No Accompanied by: Self / Same As Patient Allergies No Known Allergies Allergy (Verified 05/01/24 12:57) Medication List - Last Reconciled 05/01/24 by Abdulaziz Manzo MD atorvastatin 10 mg PO BEDTIME 90 days losartan 100 mg PO DAILY metoprolol succinate ER 25 mg PO DAILY 90 days HPI Comments Details: 49 year old male patient presenting for evaluation of a lump in the posterior right scalp. This has been present for several years but has gradually increased in size. He is now reporting some discomfort extending into the ear. He denies a previous history of infection or discharge. He is requesting excision of this lesion. [facility] Medical History Essential (primary) hypertension Surgical History H/O umbilical hernia repair Hx of varicose vein ligation History of knee surgery Family History Father Stroke Diabetes mellitus Mother Stroke Diabetes mellitus Brother HTN (hypertension) Diabetes mellitus Maternal Grandmother No problems noted. Maternal Grandfather Myocardial infarction Paternal Grandfather Cirrhosis Paternal Grandmother Breast cancer Son No problems noted. Daughter No problems noted. 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 3 cm pilar cyst posterior right scalp Ears: hearing grossly normal bilaterally Resp Effort & Inspection: normal respiratory effort, no audible wheezes, no cough and no respiratory distress Cardio Jugular venous distension: no JVD GI Inspection: Yes normal to inspection Skin Other: Warm, dry, no rash Neuro General: patient oriented x3 Extrem General: Yes no clubbing, cyanosis or edema Assessment & Plan Assessment & Plan (1) Scalp cyst: Code(s): L72.9 - Follicular cyst of the skin and subcutaneous tissue, unspecified Category: Medical Plan 49-year-old male patient found to have a 3 cm Pilar cyst in the posterior right scalp. This is now causing discomfort he is requested excision. After discussion of the procedure, risks, and alternatives, he consents to excision of the right Pilar cyst. This will be performed as an office procedure under local anesthesia. Coding Level of Care Code Est Pt Level 4 (21929) Diagnoses Scalp cyst L72.9
[2024-05-01 12:54] VITALS: BMI 39.9
== END 2024-05-01 13:14 | disposition home or self-care (01) ==
PROVIDERS: PCP Nurse Practitioner Family; Visit Provider Surgery
DX: L72.9 Follicular cyst of the skin and subcutaneous tissue, unspecified (principal)
CPT/HCPCS: 99214

== ENCOUNTER → 2024-05-01 12:46 | Outpatient (BNVA) | payer BC, SELFPAY | PROVIDERS: PCP Nurse Practitioner Family; Visit Provider Surgery ==

== ENCOUNTER 2024-05-15 14:40 | Outpatient (AMB) | payer BC, SELFPAY ==
--- NOTE | 2024-05-15 15:03 | A.OFFVIS_ITS ---
Vital Signs 3 05/15/24 15:11 Height 6 ft 4 in Weight 325 lb BMI 39.6 Pulse 62 Intake Visit Reasons: excision Lipoma Intake Note: Patient is seen in office for office procedure, excision of pilar cyst in the posterior right scalp. Pt c/o: here for removal of cyst Trauma Registrar Required: No Allergies No Known Allergies Allergy (Verified 05/01/24 12:57) Medication List - Last Reconciled 05/15/24 by Abdulaziz Manzo MD atorvastatin 10 mg PO BEDTIME 90 days losartan 100 mg PO DAILY metoprolol succinate ER 25 mg PO DAILY 90 days HPI Comments Details: Patient returns for excision with Pilar cyst of the posterior scalp. He denies any new changes since his last visit. [facility] Medical History Essential (primary) hypertension Surgical History H/O umbilical hernia repair Hx of varicose vein ligation History of knee surgery Family History Father Stroke Diabetes mellitus Mother Stroke Diabetes mellitus Brother HTN (hypertension) Diabetes mellitus Maternal Grandmother No problems noted. Maternal Grandfather Myocardial infarction Paternal Grandfather Cirrhosis Paternal Grandmother Breast cancer Son No problems noted. Daughter No problems noted. 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 3 cm Pilar cyst posterior right scalp Office Procedures Excision Details: Preoperative diagnosis: Pilar cyst posterior right scalp Postoperative diagnosis: Pilar cyst posterior right scalp Procedure: Excision of Pilar cyst posterior right scalp Surgeon: Abdulaziz Manzo MD Fashion Consultant Selling: None Anesthesia: Lidocaine 1% with epinephrine Indications for procedure: 3 cm Pilar cyst posterior right scalp Operative findings: 3 cm Pilar cyst posterior right scalp Specimen: Pilar cyst posterior right scalp Estimated blood loss: 2 cc Complications: None Procedure details: The site of surgery was confirmed by the patient in the posterior right scalp. After assuring informed consent the patient was placed in a left lateral decubitus position. Skin was prepped with Betadine and draped in a sterile fashion. Local anesthesia was infiltrated transversely across the cyst. An incision was then made over the cyst and carried out through subcutaneous tissue up to the cyst wall. Careful blunt dissection was used to completely excise the cyst intact. The cyst was passed off the table and sent to pathology for further examination. Hemostasis was assured using light pressure. Skin was then closed using interrupted 3-0 nylon sutures. Sterile dressings consisting of 2 x 2 gauze and Tegaderm were then applied. The patient tolerated the procedure well. He was discharged to home in stable condition. [id number] scalp/neck/hands/feet/genitalia 2.1cm-3cm Procedure code (CPT) selection complete Assessment & Plan Assessment & Plan (1) Pilar cyst of scalp: Code(s): L72.11 - Pilar cyst Category: Medical Plan 49-year-old male patient presenting with a Pilar cyst of the posterior right scalp. On examination he was found to have a 3 cm Pilar cyst. This was excised today under local anesthesia. He will return in 1 week for suture removal and wound check. Orders: Orders 2 Surgical Today L72.11 - Pilar cyst Coding Level of Care Code Procedure Only Diagnoses Pilar cyst of scalp L72.11 CPT Codes Scalp/Neck/Hands/Feet/Genetalia - CPT: 96439-[id number] scalp/neck/hands/feet/genitalia 2.1cm-3cm ([id number])
[2024-05-15 15:11] VITALS: PULSE 62; BMI 39.6
== END 2024-05-15 15:35 | disposition home or self-care (01) ==
PROVIDERS: PCP Nurse Practitioner Family; Visit Provider Surgery
DX: L72.11 Pilar cyst (principal)
CPT/HCPCS: 11423

== ENCOUNTER 2024-05-15 14:40 | Outpatient (REF) | payer BC, SELFPAY | END 2024-05-15 14:41 | disposition home or self-care (01) | LOC: HO.LNP 14:40 | PROVIDERS: PCP Nurse Practitioner Family; Visit Provider Surgery | DX: L72.11 Pilar cyst (principal) | CPT/HCPCS: 11423; 88304 ==

== ENCOUNTER 2024-05-24 14:33 | Outpatient (AMB) | payer BC, SELFPAY ==
--- NOTE | 2024-05-24 14:41 | A.OFFVIS_ITS ---
Vital Signs 05/24/24 14:42 Height 6 ft 4 in Pulse 64 Intake Visit Reasons: s/p excision Lipoma Intake Note: Patient is seen in office for post op assessment post excision of pilar cyst in the posterior right scalp. Pt c/o:denies any concerns, sutures removed at visit off proc Consultant Education Required: No Accompanied by: Self / Same As Patient Allergies No Known Allergies Allergy (Verified 05/24/24 14:42) HPI Comments Details: Patient returns 1 week following excision of a pilar cyst of the posterior right scalp. He tolerated the procedure well and denies any ongoing symptoms. Pathology confirmed a Pilar cyst. [facility] Medical History Essential (primary) hypertension Surgical History H/O umbilical hernia repair Hx of varicose vein ligation History of knee surgery Family History Father Stroke Diabetes mellitus Mother Stroke Diabetes mellitus Brother HTN (hypertension) Diabetes mellitus Maternal Grandmother No problems noted. Maternal Grandfather Myocardial infarction Paternal Grandfather Cirrhosis Paternal Grandmother Breast cancer Son No problems noted. Daughter No problems noted. 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 Wounds are clean, dry, and intact. No redness or bruising is appreciated. Assessment & Plan Assessment & Plan (1) Pilar cyst of scalp: Code(s): L72.11 - Pilar cyst Category: Medical Plan Patient returns 1 week following excision of Pilar cyst. His wounds are clean, dry, and intact without redness or discharge. She should follow up as needed. Coding Level of Care Code Global (88561) Diagnoses Pilar cyst of scalp L72.11
[2024-05-24 14:42] VITALS: PULSE 64
== END 2024-05-24 14:43 | disposition home or self-care (01) ==
PROVIDERS: PCP Nurse Practitioner Family; Visit Provider Surgery
DX: L72.11 Pilar cyst (principal)
CPT/HCPCS: 99024

== ENCOUNTER → 2024-05-24 14:33 | Outpatient (BNVA) | payer BC, SELFPAY | PROVIDERS: PCP Nurse Practitioner Family; Visit Provider Surgery ==

== ENCOUNTER → 2024-09-06 07:34 | Outpatient (BNVA) | payer SELFPAY | PROVIDERS: PCP Nurse Practitioner Family; Visit Provider Physician Assistant Medical | DX: Z02.79 Encounter for issue of other medical certificate (principal) ==

== ENCOUNTER 2024-12-18 07:22 | Outpatient (REF) | payer BC, SELFPAY ==
--- NOTE | ~2024-12-18 | CT_ITS ---
CLINICAL HISTORY: lung nodules CT chest without contrast Comparison: CT/REG/NC/SR - CT CHEST WO IV CON - 12/20/23 08:[address]/NC/SR - CT CHEST WO IV CON - 08/11/23 10:29 EDT Findings: The trachea and central bronchi are patent. Mild apical centrilobular and paraseptal emphysema. 3 mm left upper lobe nodule on image 42 of series 156 is stable. Nodule along the fissure in the left lower lobe on image 56 of series 4 is stable and most consistent with an intrapulmonary lymph node. Inferior right upper lobe nodule on image 57 of series 4 is stable. A few additional sub 5 mm nodules are stable. No new or enlarging nodules or masses. No dense consolidation, pleural effusion or pneumothorax. Unremarkable mediastinal structures. No adenopathy. Bilateral gynecomastia. No chest wall lesions or axillary adenopathy. Thyroid not well seen. Hepatic steatosis. No acute osseous findings. Scoliotic curvature of the spine. IMPRESSION: 1. Stable bilateral noncalcified pulmonary nodules on a background of mild apical predominant emphysema. This document has been electronically signed by: Jane Marquez MD on 12/18/2024 08:30:45
== END 2024-12-18 07:23 | disposition home or self-care (01) ==
LOC: HO.CT 07:22
PROVIDERS: PCP Nurse Practitioner Family; Visit Provider Nurse Practitioner Family
DX: R91.1 Solitary pulmonary nodule (principal)
CPT/HCPCS: 71250

== ENCOUNTER → 2024-12-18 07:23 | Outpatient (BNV) | payer BC, SELFPAY | PROVIDERS: PCP Nurse Practitioner Family; Visit Provider Radiology Diagnostic Radiology | DX: R91.8 Other nonspecific abnormal finding of lung field (principal); J43.9 Emphysema, unspecified | CPT/HCPCS: 71250 ==

== ENCOUNTER 2025-01-29 12:38 | Outpatient (REF) | payer BC, SELFPAY ==
--- OUTSIDE RECORDS SUMMARY | 2025-01-29 14:46 | XMS_ITS | Clinical Summary ---
Author Organization [facility] Address [address] [place] [address] Care Team Providers Care Athletic Scout Name Role Phone Unavailable Primary Care Provider Unavailabl e Social History Tobacco Use Types Packs/Day Years Used Date Smoking Tobacco: Never Assessed Sex and Gender Information Value Date Recorded Sex Assigned at Not on file Legal Sex Male 9:41 PM EDT Gender Identity Not on file Sexual Orientation Not on file Plan of Treatment Health Maintenance Due Date Last Done Comments Hepatitis C Screening 1975 DTaP/Tdap/Td (1 - Tdap) 1993 Hep B (1 of 3 - 19+ 3-dose series) 1994 COVID-19 Vaccine ( - 2023-2 5 season) 2024 Influenza (#1) 2024 Pneumococcal 50+ years (1 of 1 - PCV) 2025 Zoster (Shingrix) (1 of 2) 2025 HPV Vaccine Aged Out No longer eligi ble based on patient's age to complete this topic Hep A Aged Out No longer eligi ble based on patient's age to complete this topic Hib Aged Out No longer eligi ble based on patient's age to complete this topic Meningococcal ACWY Aged Out No longer eligible based on patient's age to complete this topic
[2025-01-29 16:13] LABS: MANUAL DIFF FLAG NO
[2025-01-29 16:22] LABS: Urine Cytology See Pathology rpt
[2025-01-29 16:32] LABS: Appearance Urine Turbid; Color Urine Yellow; Glucose Urine UA Negative (Negative); Leukocyte Esterase Urine Negative (Negative); Nitrite Urine Negative (Negative); Urine Blood Negative (Negative); Urine Ketones Negative (Negative); Urine Protein Negative (Neg-Trace)
[2025-01-29 16:36] LABS: Basophils Absolute Auto 0.1 X10*3/uL (0.0-0.2); Basophils Percent Auto 0.8 % (0-2); Eosinophils Absolute Auto 0.2 X10*3/uL (0.0-0.4); Eosinophils Percent Auto 2.4 % (0-4); Hematocrit 49.3 % (42.0-52.0); Hemoglobin 16.7 g/dl (14.0-18.0); Imm Gran Abs Auto 0.04 X10*3/uL (0.00-0.03); Imm Gran Pct Auto 0.5 % (0.0-0.4); Lymphocytes Absolute Auto 1.9 X10*3/uL (1.2-4.9); Mean Corpuscular HGB Conc 33.9 g/dl (31.0-36.0); Mean Corpuscular Hemoglobin 30.5 pg (27.0-33.0); Mean Corpuscular Volume 90.1 fL (80.0-98.0); Mean Platelet Volume 12.6 fL (9.4-12.4); Monocytes Absolute Auto 0.8 X10*3/uL (0.1-1.2); Monocytes Percent Auto 10.6 % (2-11); Neutrophils Absolute Auto 4.9 x10*3/uL (2.0-8.3); Neutrophils Percent Auto 61.7 % (45-73); Platelet Count 161 X10*3/uL (160-400); Red Blood Count 5.47 X10*6/uL (4.60-5.80); Red Cell Distribution Width 14.2 % (11.0-16.0); White Blood Count 7.9 X10*3/uL (4.8-10.8)
[2025-01-29 17:21] LABS: Erythrocyte Sedimentation Rate 2 MM/HR (0-15)
[2025-01-29 18:01] LABS: Alanine Aminotransferase 48 U/L (0-40); Albumin Level 4.1 g/dL (3.5-5.0); Alkaline Phosphatase 47 U/L (39-117); Anion Gap 9 (12-20); Aspartate Amino Transferase 30 U/L (5-37); Bilirubin Total 0.4 mg/dL (0.0-1.0); Blood Urea Nitrogen 15 mg/dL (9-16); C Reactive Protein 0.55 mg/dL (< or = 0.50); Calcium 9.3 mg/dL (8.4-10.2); Carbon Dioxide 25 mmol/L (22-29); Chloride 109 mmol/L (96-108); Cholesterol 148 mg/dL (<200); Estimated Glomerular Filt Rate > 60; Glucose Fasting 96 mg/dL (60-99); HDL Cholesterol 40 mg/dL (>40); LDL Cholesterol Calculated 86 mg/dL (<100); Potassium 4.2 mmol/L (3.3-5.1); Sodium 139 mmol/L (135-145); Total Protein 7.2 g/dL (6.5-8.0); Triglycerides 112 mg/dL (<150)
== END 2025-01-29 12:39 | disposition home or self-care (01) ==
LOC: HO.HMGCLDS 12:38
PROVIDERS: PCP Nurse Practitioner Family; Visit Provider Nurse Practitioner Family
DX: Z00.00 Encounter for general adult medical examination without abnormal findings (principal); R19.7 Diarrhea, unspecified; Z80.52 Family history of malignant neoplasm of bladder
CPT/HCPCS: 36415; 80053; 80061; 81003; 84443; 85025; 85652; 86140; 88112

== ENCOUNTER 2025-04-23 15:49 | Outpatient (AMB) | payer BC, SELFPAY ==
[2025-04-23 15:50] VITALS: BP 136/86; PULSE 83; O2SAT 96; BMI 41.1
--- NOTE | 2025-04-23 15:50 | MHC.PC.OV ---
Vital Signs 04/23/25 15:50 Height 6 ft 4 in Weight 338 lb BMI 41.1 BP 136/86 Blood Pressure Location Lt brachial Position Sitting Pulse 83 Pulse Source Pulse Oximeter Pulse Oximetry (%) 96 Oxygen Delivery Method Room Air Intake Visit Reasons: Annual PE/Provider out for his original appt Allergies No Known Allergies Allergy (Verified 04/23/25 16:31) Medication List - Last Reconciled 04/23/25 by SHILPI Pineda- atorvastatin 10 mg PO BEDTIME 90 days losartan 100 mg PO DAILY metoprolol succinate ER 25 mg PO DAILY 90 days trazodone 50 mg PO BEDTIME PRN varenicline tartrate (Chantix) 0.5 mg PO BID 30 days Tobacco use date assessed: 04/23/25 Dental Screening Dental Screen Date: 04/23/25 Did you have a dental visit in the last 12 months?: Yes Did you have a dental problem in the last 6 months where you did not have access to dental care?: No Was dental information given to patient?: Patient has dentist HPI Annual PE/Provider out for his original appt HPI Details History of Present Illness The patient is a 50-year-old male presenting for a physical examination and preventative care. He has a history of tobacco use disorder and has previously quit smoking for three years with Chantix. Currently, he is part of a low-dose CT scan program for lung health monitoring and has been reinitiated on Chantix to aid in smoking cessation (he understands the SE) The patient is morbidly obese and denies any chest pain, dyspnea, abdominal pain, hematochezia, constipation, or diarrhea. He also denies any suicidal or homicidal ideation. Preventative care measures include a scheduled colonoscopy and a PSA test. Health Maintenance - Smoking cessation support with Chantix - Scheduled colonoscopy for colorectal cancer screening - PSA test for prostate cancer screening Social History - Tobacco use: Currently smoking, previously quit for three years with Chantix Review of Systems - Cardiovascular: Denies chest pain - Respiratory: Denies dyspnea - Gastrointestinal: Denies abdominal pain, hematochezia, constipation, diarrhea - Psychiatric: Denies suicidal ideation, homicidal ideation Physical Exam General: Cooperative, healthy appearing, comfortable, no acute distress and well developed, morbidly obese Orientation: Patient oriented x3 Limitations: No limitations Head: Normal to inspection Ears: Hearing grossly normal bilaterally Nose: Normal external nose present Face and sinus: Normal facial exam Eyes: Appearance normal, both eyes and all related structures Neck: Normal visual inspection and Yes full ROM Respiratory: Diminished lung sounds, moving air bilaterally Cardiovascular: Regular rate and rhythm. Normal S1 and S2 GI: Normal to inspection. Soft to palpation and nontender : Testicles without masses/lesions and no hernias appreciated Skin: No rashes or lesions noted Neuro: Patient oriented x3 Extremities: +1 edema in lower extremities, otherwise normal to inspection Results Plan The patient will resume Chantix to assist with smoking cessation, given his previous success with the medication. He understands the potential side effects. Preventative care includes a scheduled colonoscopy and a PSA test for prostate cancer screening. Patient was informed and verbally consented to the use of an ambient scribe for clinic note documentation during this visit. Discussion Notes I discussed with the patient the plan to restart Chantix for smoking cessation, emphasizing the importance of quitting smoking for his overall health. We reviewed the potential side effects of Chantix, and he expressed understanding and willingness to proceed. Additionally, we talked about the upcoming colonoscopy and PSA test as part of his preventative health measures. Patient Instructions - Start Chantix as prescribed to help quit smoking. - Attend scheduled colonoscopy and PSA test appointments. [facility] Medical History Essential (primary) hypertension Surgical History H/O umbilical hernia repair Hx of varicose vein ligation History of knee surgery Family History Father Stroke Diabetes mellitus Mother Stroke Diabetes mellitus Brother HTN (hypertension) Diabetes mellitus Maternal Grandmother No problems noted. Maternal Grandfather Myocardial infarction Paternal Grandfather Cirrhosis Paternal Grandmother Breast cancer Son No problems noted. Daughter No problems noted. 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 1. Little interest or pleasure in doing things: not at all 2. Feeling down, depressed, or hopeless: not at all 3. Trouble falling or staying asleep, or sleeping too much: not at all 4. Feeling tired or having little energy: not at all 5. Poor appetite or overeating: not at all 6. Feeling bad about yourself - or that you are a failure or have let yourself or your family down: not at all 7. Trouble concentrating on things, such as reading the newspaper or watching television: not at all 8. Moving or speaking so slowly that other people could have noticed. Or the opposite - being so fidgety or restless that you have been moving around a lot more than usual: not at all 9. Thoughts that you would be better off or of hurting yourself in some way: not at all Total score: 0 Depression Screening Interpretation: Negative Depression Screening Done: Yes 96971 - PHQ-9 Billing: Yes Source: Developed by Drs. Emory Patricia, Wanda Balbuena, Georges Sevilla and colleagues, with an educational ezekiel from [employer]. Thrive Questionnaire Date Thrive assessed: 04/23/25 I am a: Patient What is your living situation today?: I have a steady place to live Within the past 12 months, did the food you bought not last and you didn't have the money to get more?: Never true Within the past 12 months, did you worry whether your food would run out before you got money to buy more?: Never true Do you have trouble paying for medicines?: No Do you have trouble getting transportation to medical appointments?: No Do you have trouble paying your heating and electricity bill?: No Do you have trouble taking care of your child, family member or friend?: No Do you have trouble with day-to-day activities such as bathing, preparing meals, shopping, managing finances, etc.?: No Are you currently unemployed and looking for a job?: No Are you interested in more education?: No Please select the resources that you would like help with: None Currently or been in a relationship where the following occur: No concerns reported THRIVE Score: 0 AUDIT C Alcohol Use Questionnaire (AUDIT-C) 1. How often do you have a drink containing alcohol?: Monthly or less 2. How many drinks containing alcohol do you have on a typical day when you are drinking?: 3 or 4 3. How often do you have six or more drinks on one occasion?: Never Total Score: 2 Score Reviewed/Action Taken: Yes NISHA-7 AMB Questionnaire NISHA-7 Date NISHA - 7 assessed: 04/23/25 Feeling nervous, anxious, or on edge: 0 = Not at all Not being able to stop or control worryin = Not at all Worrying too much about different things: 0 = Not at all Trouble relaxin = Not at all Being so restless that it is hard to sit still: 0 = Not at all Becoming easily annoyed or irritable: 0 = Not at all Feeling afraid as if something awful might happen: 0 = Not at all Total NISHA-7 score (0-4 normal; 5-9 mild; 10-14 moderate; 15-21 severe): 0 Source: Developed by Drs. Emory Patricia, Wanda Balbuena, Georegs Sevilla and colleagues, with an educational ezekiel from [employer]. NISHA-7 Assessment Billing NISHA-7 Assessment Tool: NISHA-7 Assessment 00315 Physical exam (Primary Care) Vital Signs: Last Vital Signs Pulse 83 04/23/25 15:50 BP 136/86 04/23/25 15:50 Pulse Ox 96 04/23/25 15:50 Oxygen Delivery Method Room Air 04/23/25 15:50 BMI result Body Mass Index 41.1 Tobacco/Smoking Status: Tobacco use Status Tobacco use date assessed 04/23/25 04/23/25 15:51 Patient Tobacco Use Status Current everyday Tobacco 04/23/25 15:51 Tobacco use type Cigarette 04/23/25 15:51 e-Cigarette/Vaping Use Never Used 04/23/25 15:51 PHQ-9: PHQ-9 Score PHQ-9: Total score 0 04/23/25 15:51 Depression Screening Interpretation: Negative Thrive Assessment: Date of Thrive Assessment Date Thrive assessed 04/23/25 04/23/25 15:51 Currently or been in a relationship where the following occur: No concerns reported Coding Level of Care Code Est Pt Prev Care 40-64y(26351) Diagnoses Physical exam Z00. Screening for prostate cancer Z12.5 Additional Codes NISHA-7 Assessment Billing - NISHA-7 Assessment Tool: NISHA-7 Assessment 65050 ([id number]) PHQ-9 - 87474 - PHQ-9 Billing: Yes ([id number]) Assessment & Plan Assessment & Plan (1) Physical exam: Code(s): Z00.00 - Encounter for general adult medical examination without abnormal findings Category: Medical (2) Screening for prostate cancer: Code(s): Z12.5 - Encounter for screening for malignant neoplasm of prostate Category: Medical Plan . Orders: Orders Complete Blood Count Auto Diff Today Z00.00 - Encounter for general adult medical examination without abnormal findings Comprehensive [place]. Panel Fast Today Z00.00 - Encounter for general adult medical examination without abnormal findings Lipid Panel Today Z00.00 - Encounter for general adult medical examination without abnormal findings TSH reflex Free T4 Today Z00.00 - Encounter for general adult medical examination without abnormal findings UA CC w/rflx Micro + Cult Today Z00.00 - Encounter for general adult medical examination without abnormal findings Prostate Specific Antigen Scr Today Z12.5 - Encounter for screening for malignant neoplasm of prostate AMB EKG-In Office Today Z00.00 - Encounter for general adult medical examination without abnormal findings Medications: New varenicline tartrate (Chantix) administer on days 4, 5, 6, and 7 of therapy 0.5 mg PO BID 60 tabs 0RF 30 days Changed From metoprolol succinate ER 25 mg PO DAILY 90 days 90 tabs 0RF To metoprolol succinate ER 50 mg PO DAILY 90 tabs 0RF 90 days Discontinued trazodone Discontinued Reason: Doctor's Order 50 mg PO BEDTIME PRN 30 tabs 1RF sleep
--- OUTSIDE RECORDS SUMMARY | 2025-04-23 18:50 | XMS_ITS | Clinical Summary ---
Author Organization [facility] Address [address] [place] [address] Care Team Providers Care [facility] Administrator Name Role Phone Unavailable Primary Care Provider [...] Vaccine ( - 2023-2 5 season) 2024 Pneumococcal 50+ years (1 of 1 - PCV) 2025 Zoster (Shingrix) (1 of 2) 2025 Influenza (Season Ended) 2025 HPV Vaccine Aged Out No longer [...]
== END 2025-04-23 17:01 | disposition home or self-care (01) ==
LOC: HO.HMCC 15:49
PROVIDERS: PCP Nurse Practitioner Family; Visit Provider Nurse Practitioner Family
DX: Z00.00 Encounter for general adult medical examination without abnormal findings (principal); Z12.5 Encounter for screening for malignant neoplasm of prostate

== ENCOUNTER → 2025-04-23 15:49 | Outpatient (BNVA) | payer BC, SELFPAY | PROVIDERS: PCP Nurse Practitioner Family; Visit Provider Nurse Practitioner Family | DX: Z00.00 Encounter for general adult medical examination without abnormal findings (principal); E66.01 Morbid (severe) obesity due to excess calories; Z68.41 Body mass index [BMI] 40.0-44.9, adult | CPT/HCPCS: 96127 ==

== ENCOUNTER 2025-10-02 13:56 | Outpatient (AMB) | payer BC, SELFPAY ==
--- NOTE | 2025-10-02 13:57 | A.OFFVIS_ITS ---
Vital Signs 3 10/02/25 14:17 Height 6 ft 4 in Weight 333 lb BMI 40.5 Pulse 82 Intake Visit Reasons: colon screening Intake Note: Patient is seen in office for colonoscopy screening. Pt c/o: denies any GI symptoms Preschool Assistant Director Required: No Accompanied by: Self / Same As Patient Allergies No Known Allergies Allergy (Verified 10/02/25 14:18) HPI HPI colon screening: Details: 48-year-old male here for preprocedural meeting to discuss a screening colonoscopy. He is referred by Abdulaziz Delgado of [facility] primary care. PMX Hypertension Thyromegaly with thyroid nodules Fatty liver Smoker Umbilical hernia History of hypokalemia * SURGICAL HISTORY Umbilical hernia repair Varicose vein ligation Arthroscopic knee surgery * ALLERGIES: NKDA * Inno[facility] LABS: Laboratory Tests 01/29/25 12:45 WBC 7.9 Hgb 16.7 Hct 49.3 Plt Count 161 Estimated GFR > 60 Total Bilirubin 0.4 AST 30 ALT 48 H Alkaline Phosphatase 47 C-Reactive Protein 0.55 H TSH 2.50 TODAY'S VISIT First Colonoscopy:FIrst Bowel or upper GI problems: hx of diarrhea last sapna 7-8 mos ago that has resolved Cardiac or resp: No Anesthesia:No ID:No FHX: No PFSH Medical History Hypokalemia Family history of bladder cancer Scalp cyst Pilar cyst of scalp At risk for sleep apnea Screening for prostate cancer Screening for colon cancer Nicotine dependence, cigarettes, uncomplicated Essential (primary) hypertension Surgical History H/O umbilical hernia repair Hx of varicose vein ligation History of knee surgery Family History Father Stroke Diabetes mellitus Mother Stroke Diabetes mellitus Brother HTN (hypertension) Diabetes mellitus Maternal Grandmother No problems noted. Maternal Grandfather Myocardial infarction Paternal Grandfather Cirrhosis Paternal Grandmother Breast cancer Son No problems noted. Daughter No problems noted. 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 Current occupational exposures/hazards: Yes Cognitive needs: No Hearing needs: No Vision needs: No Review of Systems Const Denies fatigue, Denies fever(s), Denies night sweats, Denies poor appetite and Denies weight loss ENT Reports Normal hearing present, Denies dysphagia, Denies odynophagia, Denies throat swelling and Denies tongue swelling Card Reports no additional complaints Resp Reports no additional complaints GI Details: Denies abdominal pain, Denies melena, Denies bloating, Denies hematochezia, Denies constipation, Denies GI cramping, Denies dysphagia, Denies excessive flatus, Denies early satiety, Denies heartburn, Reports diarrhea, Denies nausea, Denies odynophagia, Denies vomiting and Denies hematemesis Skin/Breast Denies pruritus, Denies lesions, Denies rash and Denies jaundice Neuro Reports Normal hearing present and Denies Abnormal speech present Endo Denies fatigue Aller/Immun Denies throat swelling and Denies tongue swelling Physical Exam Vital Signs: Last Vital Signs Pulse 82 10/02/25 14:17 BMI result Body Mass Index 40.5 Const General: cooperative, no acute distress, well developed and well groomed Nutritional Appearance: well nourished and obese Orientation/consciousness: oriented to person, oriented to place and oriented to time Limitations: No language barrier HEENT Head: Yes normocephalic and Yes atraumatic Eyes General: appearance normal, both eyes and all related structures Pupils: Equal, round and reactive pupils present Neck Neck: Yes normal visual inspection and Yes no lymphadenopathy Thyroid: Thyroid normal Resp Effort & Inspection: normal respiratory effort and able to speak in complete sentences Auscultation: clear to auscultation bilaterally Cardio Rate: regular rate Rhythm: regular rhythm Heart sounds: Normal, physiologic split S2 sound present Peripheral pulses: radial pulses present and posterior tibial pulses present GI Inspection: No distended, Yes Abdominal panniculus present and Yes obesity Palpation (GI): Soft to palpation, nontender, no guarding, not rigid and No hepatosplenomegaly present Percussion: Yes normal to percussion Auscultation: normal bowel sounds Rectal Exam - Male: Yes deferred Abdomen image: 2 1. surgical scar Skin General skin exam: no rashes or lesions noted, turgor normal, skin not dry, no jaundice, No spider nevi and no striae Rashes: no rashes Nails: normal Neuro General: oriented to person, oriented to place and oriented to time Cranial nerves: Yes Equal, round and reactive pupils present and Yes Normal hearing present Speech: No Abnormal speech present Extrem General: Yes normal to inspection, No clubbing, No cyanosis and No edema Psych Appearance: grossly normal and well kempt Mental Status: mental status grossly normal Speech and movement: Normal speech and movement present Affect: normal affect Attitude: cooperative Thought process: Normal thought process present and not confabulating Thought content: Normal thought content present Insight: Good insight present (Psych) Judgement: Good judgement present (Psych) Assessment & Plan Assessment & Plan (1) Pre-op examination: Code(s): Z01.818 - Encounter for other preprocedural examination Category: Medical Plan First Colonoscopy:FIrst Bowel or upper GI problems: hx of diarrhea last sapna 7-8 mos ago that has resolved Cardiac or resp: No Anesthesia:No ID:No FHX: No Orders: Referrals 2 GI Procedure Notification Z01.818 - Encounter for other preprocedural examination Medications: New 2 peg 3350-electrolytes 236-22.74-6.74 -5.86 gram (Golytely) until fecal effluent is clear; do not exceed a total volume of 2,000 mL 240 mL PO Q10M 4,000 mL 0RF 1 day Z12.11 - Encounter for screening for malignant neoplasm of colon bisacodyl (Dulcolax (bisacodyl)) 10 mg (2 x 5 mg) PO BEDTIME 4 tabs 0RF 2 days Coding Level of Care Code New Pt Level 3 (10679) Diagnoses Pre-op examination Z01.818
[2025-10-02 14:17] VITALS: PULSE 82; BMI 40.5
--- OUTSIDE RECORDS SUMMARY | 2025-10-02 16:43 | XMS_ITS | Clinical Summary ---
Author Organization [facility] Address [address] [id number] Phone Care Team Providers Care Duty Engineer Name Role Phone Venita Isabel MD Primary Care Provider [phone]- [phone] Social History Tobacco Use Types Packs/Day Years Used Date Smoking Tobacco: Never Assessed Education Answer Date Recorded Are you interested in more education? Not on aixa e 02/26/2023 Are you concerned about learning? Not on file 02/26/2023 No 02/26/2023 No 02/26/2023 Digital Access Answer Date Recorded No 03/29/2023 No 03/29/2023 Reliable internet access at home? Not on file 03/29/2023 Device with a working camera? Not on file Sex and Gender Information Value Date Recorded Sex Assigned at Not on file Legal Sex Male 1:03 PM EDT Gender Identity Not on file Sexual Orientation Not on file Plan of Treatment Health Maintenance Due Date Last Done Comments Adult Td,Tdap Booster 1975 LIPID PANEL 1975 DEPRESSION SCREENING 1987 SMOKING Hx and SMOKELESS TOB ACCO SCREENING 01/12/1988 HEPATITIS C SCREENING 1993 HIV ONE-TIME SCREENING (18-6 5 YEARS) 1993 COLOGUARD 01/12/2020 COLONOSCOPY 01/12/2020 COLORECTAL CANCER SCREENING 01/12/2020 FIT TEST 01/12/2020 FOBT 01/12/2020 SIGMOIDOSCOPY 01/12/2020 VIRTUAL COLONOSCOPY 01/12/2020 PNEUMOCOCCAL VACCINES (50+ y ears) (1 of 1 - PCV) 2025 ZOSTER VACCINES (1 of 2) 2025 INFLUENZA VACCINE (#1) 2025 COVID-19 VACCINE ( - 2024-2 6 season) 2025 RSV VACCINE (1 - 1-dose 75+ series) 2050 HEPATITIS A VACCINES Aged Out No long er eligible based on patient's age to complete this topic HIB VACCINES Aged Out No longer eligi ble based on patient's age to complete this topic MENINGOCOCCAL VACCINES (ACWY) Aged Out No longer eligible based on patient's age to complete this topic MENINGOCOCCAL VACCINES (B) Aged Out N o longer eligible based on patient's age to complete this topic Medical Devices Not on file Insurance OUT [facility] PPO PPO BLUE CROSS OUT OF STATE PPO BLUE CROSS OUT OF STATE PPO BLUE CROSS OUT OF STATE PPO OUT OF STATE PPO Care Teams Duty Engineer Relationship Specialty Start Date End Date Venita Isabel MD [address] [address] [email or web address] PCP - General Otolaryngology 05/17/23 Additional Source Comments The information contained in this document represents components of the legal health record. It is not the complete legal health record.[facility]
--- OUTSIDE RECORDS SUMMARY | 2025-10-02 16:43 | XMS_ITS | Clinical Summary ---
Author Organization [facility] Address [address] [place] [address] Care Team Providers Care Apprise Counselor Name Role Phone Unavailable Primary Care Provider [...] of 3 - 19+ 3-dose series) 1994 Pneumococcal 50+ years (1 of 1 - PCV) 2025 Zoster (Shingrix) (1 of 2) 2025 COVID-19 Vaccine (1 - 2024-2 6 season) 2025 Influenza (#1) 2025 RSV (1 - 1-dose 75+ series) 2050 HPV Vaccine (No Doses Required) Completed Hep A Aged Out No longer eligi ble based on patient's age to complete this topic Hib Aged Out No longer eligi ble based on patient's age to complete this topic Meningococcal ACWY Aged Out No longer eligible based on patient's age to complete this topic
== END 2025-10-02 14:35 | disposition home or self-care (01) ==
LOC: HO.HGI 13:57
PROVIDERS: PCP Nurse Practitioner Family; Visit Provider Nurse Practitioner
DX: Z01.818 Encounter for other preprocedural examination (principal); Z12.11 Encounter for screening for malignant neoplasm of colon
CPT/HCPCS: S0285

== ENCOUNTER 2025-10-29 10:16 | Outpatient (AMB) | payer BC, SELFPAY ==
[2025-10-29 10:25] VITALS: BP 132/90; PULSE 79; RESP 16; O2SAT 95; BMI 40.3
--- NOTE | 2025-10-29 10:25 | A.OFFPC_ITS ---
Vital Signs 10/29/25 10:25 10/29/25 11:03 Height 6 ft 4 in Weight 331 lb BMI 40.3 BP 132/90 H 122/84 Blood Pressure Location Lt brachial Lt brachial Position Sitting Sitting Respiration 16 Pulse 79 Pulse Oximetry (%) 95 Oxygen Delivery Method Room Air Intake Visit Reasons: 6m f/u Product Representative Required: No Accompanied by: Self / Same As Patient Allergies No Known Allergies Allergy (Verified 10/29/25 10:41) Medication List - Last Reconciled 10/29/25 by SHILPI Pineda- atorvastatin 10 mg PO BEDTIME 90 days bisacodyl (Dulcolax (bisacodyl)) 10 mg (2 x 5 mg) PO BEDTIME 2 days eszopiclone 1 mg PO BEDTIME 30 days losartan 100 mg PO DAILY metoprolol succinate ER 50 mg PO DAILY 90 days peg 3350-electrolytes 236-22.74-6.74 -5.86 gram (Golytely) 240 mL PO Q10M 1 day varenicline tartrate (Chantix) 0.5 mg PO BID 30 days Tobacco use date assessed: 10/29/25 Dental Screening Dental Screen Date: 10/29/25 Did you have a dental visit in the last 12 months?: Yes Did you have a dental problem in the last 6 months where you did not have access to dental care?: No Was dental information given to patient?: Patient has dentist HPI 6m f/u HPI Details Chief Complaint The patient presents for a HTN follow up History of Present Illness The patient is a 50 year old male presenting for a follow up. The patient has a history of lung nodules greater than 6 mm and is due for a repeat CAT scan in December. He was previously referred to a low dose CAT scan program. His blood pressure is elevated, which he attributes to not having taken his blood pressure medication today. For health maintenance, he has had an initial visit with GI for a colon screening, but the procedure has not yet been performed. He has declined all vaccinations. Social History Health Maintenance The patient has seen a GI specialist for an initial visit for a colon cancer screening, but the colonoscopy has not yet been performed. He has declined all vaccinations. Review of Systems - Cardiovascular: Denies chest pain. - Respiratory: Denies shortness of breat h. - Gastrointestinal: Denies abdominal veronika n, hematochezia, constipation, or diarrhea. - Psychiatric: Denies suicidal or homici chan ideation. Physical Exam General: Cooperative, healthy appearing, comfortable, no acute distress and well developed, obese Orientation: Patient oriented x3 Limitations: No limitations Head: Normal to inspection Ears: Hearing grossly normal bilaterally Nose: Normal external nose present Face and sinus: Normal facial exam Eyes: Appearance normal, both eyes and all related structures Neck: Normal visual inspection and Yes full ROM Respiratory: Normal respiratory effort and able to speak in complete sentences. Clear/dim to auscultation bilaterally Cardiovascular: Regular rate and rhythm. Normal S1 and S2. GI: Normal to inspection. Soft to palpation and nontender Skin: No rashes or lesions noted Neuro: Patient oriented x3 Extremities: Normal to inspection Results - Imaging: History of lung nodules great er than 6 mm. Plan 1. Lung Nodule The patient has a history of lung nodules greater than 6 mm. A repeat CAT scan is due in December, and he will be enrolled in a low dose CAT scan program for surveillance. 2. Elevated Blood Pressure Reading Witho ut Diagnosis Of Hypertension The patient's blood pressure was elevated in the office; he reports not taking his blood pressure medication today. He will send home blood pressure readings for further monitoring. Discussion Notes I have placed an order for the patient's repeat CAT scan due in December and will enroll him in our low dose CAT scan program for surveillance of his lung nodules. I discussed his elevated blood pressure and have instructed him to send blood pressure readings from home. We also noted that his colon screening has not yet been performed, and he has declined all vaccinations at this time. Patient Instructions - You are due for a repeat CAT scan of y our chest in December to monitor your lung nodules. - I will enroll you in our low-dose CAT scan program for ongoing monitoring. - Please continue to work with the [facility] of [facility] to schedule your colon cancer screening (colonoscopy). - Please check your blood pressure at [place] and send me the readings so we can make sure it is well-controlled. [facility] Medical History Hypokalemia Family history of bladder cancer Scalp cyst Pilar cyst of scalp At risk for sleep apnea Screening for prostate cancer Screening for colon cancer Nicotine dependence, cigarettes, uncomplicated Essential (primary) hypertension Surgical History (Reviewed 10/29/25 @ 10:38 by Abdulaziz Delgado [facility] H/O umbilical hernia repair Hx of varicose vein ligation History of knee surgery Family History Father Stroke Diabetes mellitus Mother Stroke Diabetes mellitus Brother HTN (hypertension) Diabetes mellitus Maternal Grandmother No problems noted. Maternal Grandfather Myocardial infarction Paternal Grandfather Cirrhosis Paternal Grandmother Breast cancer Son No problems noted. Daughter No problems noted. 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 1. Little interest or pleasure in doing things: not at all 2. Feeling down, depressed, or hopeless: not at all 3. Trouble falling or staying asleep, or sleeping too much: not at all 4. Feeling tired or having little energy: not at all 6. Feeling bad about yourself - or that you are a failure or have let yourself or your family down: not at all 7. Trouble concentrating on things, such as reading the newspaper or watching television: not at all 8. Moving or speaking so slowly that other people could have noticed. Or the opposite - being so fidgety or restless that you have been moving around a lot more than usual: not at all 9. Thoughts that you would be better off or of hurting yourself in some way: not at all Depression Screening Interpretation: Negative Depression Screening Done: Yes 34035 - PHQ-9 Billing: Yes Source: Developed by Drs. Emory Patricia, Wanda Balbuena, Georges Sevilla and colleagues, with an educational ezekiel from [employer]. Thrive Questionnaire Date Thrive assessed: 04/20/25 I am a: Patient What is your living situation today?: I have a steady place to live Within the past 12 months, did the food you bought not last and you didn't have the money to get more?: Never true Within the past 12 months, did you worry whether your food would run out before you got money to buy more?: Never true Do you have trouble paying for medicines?: No Do you have trouble getting transportation to medical appointments?: No Do you have trouble paying your heating and electricity bill?: No Do you have trouble taking care of your child, family member or friend?: No Do you have trouble with day-to-day activities such as bathing, preparing meals, shopping, managing finances, etc.?: No Are you currently unemployed and looking for a job?: No Are you interested in more education?: No Currently or been in a relationship where the following occur: No concerns reported THRIVE Score: 0 NISHA-7 AMB Questionnaire NISHA-7 Date NISHA - 7 assessed: 10/29/25 Feeling nervous, anxious, or on edge: 0 = Not at all Not being able to stop or control worryin = Not at all Worrying too much about different things: 0 = Not at all Trouble relaxin = Not at all Being so restless that it is hard to sit still: 0 = Not at all Becoming easily annoyed or irritable: 0 = Not at all Feeling afraid as if something awful might happen: 0 = Not at all Total NISHA-7 score (0-4 normal; 5-9 mild; 10-14 moderate; 15-21 severe): 0 Source: Developed by Drs. Emory Patricia, Wanda Balbuena, Georges Sevilla and colleagues, with an educational ezekiel from [employer]. NISHA-7 Assessment Billing NISHA-7 Assessment Tool: NISHA-7 Assessment 59952 Physical exam (Primary Care) Vital Signs: Last Vital Signs Pulse 79 10/29/25 10:25 Resp 16 10/29/25 10:25 BP 132/90 H 10/29/25 10:25 Pulse Ox 95 10/29/25 10:25 Oxygen Delivery Method Room Air 10/29/25 10:25 BMI result Body Mass Index 40.3 Tobacco/Smoking Status: Tobacco use Status Tobacco use date assessed 10/29/25 10/29/25 10:29 Patient Tobacco Use Status Current everyday Tobacco 10/29/25 10:29 Tobacco use type Cigarette 10/29/25 10:29 e-Cigarette/Vaping Use Never Used 10/29/25 10:29 Depression Screening Interpretation: Negative Thrive Assessment: Date of Thrive Assessment Date Thrive assessed 04/20/25 10/29/25 10:29 Currently or been in a relationship where the following occur: No concerns reported Coding Level of Care Code Est Pt Level 3 (23882) Est Pt Prev Care 40-64y(22152) Diagnoses Lung nodule R91.1 Essential (primary) hypertension I10 Encounter for routine adult physical exam with abnormal findings Z00.01 Additional Codes NISHA-7 Assessment Billing - NISHA-7 Assessment Tool: NISHA-7 Assessment 40479 ([id number]) PHQ-9 - 47053 - PHQ-9 Billing: Yes ([id number]) Assessment & Plan Assessment & Plan (1) Lung nodule: Comment: multiple nodules, more than 6mm Code(s): R91.1 - Solitary pulmonary nodule Category: Medical (2) Essential (primary) hypertension: Code(s): I10 - Essential (primary) hypertension Category: Medical (3) Encounter for routine adult physical exam with abnormal findings: Code(s): Z00.01 - Encounter for general adult medical examination with abnormal findings Category: Medical Plan . Orders: Orders CT chest wo IV con 2 Months R91.1 - Solitary pulmonary nodule
[2025-10-29 11:03] VITALS: BP 122/84
--- OUTSIDE RECORDS SUMMARY | 2025-10-29 13:37 | XMS_ITS | Clinical Summary ---
Author Organization [facility] Address [address] [place] [address] Care Team Providers Care Zipper Ironer Name Role Phone Unavailable Primary Care Provider [...]
--- OUTSIDE RECORDS SUMMARY | 2025-10-29 13:37 | XMS_ITS | Clinical Summary ---
Author Organization [facility] Address [address] [id number] Phone Care Team Providers Care Manager Client Name Role Phone Venita Isabel MD Primary Care Provider [phone]- [phone] Social History Tobacco Use Types Packs/Day Years [...] Medical Devices Not on file Insurance OUT [facility] PPO PPO BLUE CROSS OUT OF STATE PPO BLUE CROSS OUT OF STATE PPO BLUE CROSS OUT OF STATE PPO OUT OF STATE PPO Care Teams Manager Client Relationship Specialty Start Date End Date Venita Isabel MD [address] [address] [email or web address] PCP - General Otolaryngology 05/17/23 Additional Source Comments The information contained in this document represents components of the legal health record. It is not the complete legal health record.[facility]
== END 2025-10-29 11:41 | disposition home or self-care (01) ==
LOC: HO.HMCC 10:17
PROVIDERS: PCP Nurse Practitioner Family; Visit Provider Nurse Practitioner Family
DX: I10 Essential (primary) hypertension (principal); R91.1 Solitary pulmonary nodule

== ENCOUNTER → 2025-10-29 10:16 | Outpatient (BNVA) | payer BC, SELFPAY | PROVIDERS: PCP Nurse Practitioner Family; Visit Provider Nurse Practitioner Family | DX: Z13.31 Encounter for screening for depression (principal); Z13.39 Encounter for screening examination for other mental health and behavioral disorders | CPT/HCPCS: 96127 ==